=== PATIENT | female | born 1955 | race Caucasian/White ===

== ENCOUNTER 2021-01-08 08:05 | Inpatient (IN) | payer MEDICARE, MEDICAID, SELFPAY ==
[2021-01-08] VITALS (7 sets, daily range): BP systolic 118–155; BP diastolic 58–80; PULSE 66–86; RESP 16–20; TEMP 36.1–37; O2SAT 92–98; BMI 21.9
--- NOTE | ~2021-01-08 | US_ITS ---
EXAMINATION: US DOPPLER LOWER EXTREMITY ARTERIAL, LEFT CLINICAL INFORMATION: Wounds to left lower extremity, history of clot on Plavix COMPARISON: None TECHNIQUE: Duplex ultrasound of the left lower extremity arteries. FINDINGS: LEFT: Common femoral: PSV 139 centimeters per second. Biphasic waveform. Deep femoral: PSV 177 centimeters per second. Biphasic waveform. Proximal superficial femoral: PSV 68 centimeters per second. Biphasic waveform. Mid superficial femoral: PSV 58.5 centimeters per second. Biphasic waveform. Distal superficial femoral: PSV 55.8 centimeters per second. Biphasic waveform. Popliteal: PSV 36.2 centimeters per second. Biphasic waveform. Posterior tibial: PSV 11.6 centimeters per second. Biphasic waveform. US/US arterial duplex LE LT IMPRESSION: Mild stenoses throughout the course of the left lower extremity, predominantly visualized in the common femoral and proximal profunda arteries.
--- NOTE | ~2021-01-08 | MR_ITS ---
EXAMINATION: MR FOOT WITHOUT AND WITH CONTRAST, LEFT CLINICAL INFORMATION: Diabetes mellitus. Foot ulcer. Evaluate for osteomyelitis. COMPARISON: Left foot radiographs dated 01/08/2021. TECHNIQUE: Multi-sequences MR imaging of the left foot before and after the IV administration of 6 mL Gadavist contrast on a high-field strength scanner. FINDINGS: There is prominent increased T2 signal with decreased T1 signal as well as prominent postcontrast enhancement within the 2nd distal phalanx, consistent with osteomyelitis. There is adjacent subcutaneous fluid distally measuring up to 0.6 cm, which may represent a soft tissue abscess. Mild edema within the distal aspect of the 1st distal phalanx without decreased T1 signal or significant postcontrast enhancement to suggest osteomyelitis. No stress reaction or fracture. Mild edema within the intrinsic musculature of the foot, which can be seen in diabetic patients. The visualized flexor and extensor tendons are intact. MR/MR foot LT wo/w con IMPRESSION: 1. Findings consistent with acute osteomyelitis within the 2nd distal phalanx. Adjacent soft tissue fluid collection measuring 0.6 cm, likely representing a small abscess. 2. Edema within the intrinsic musculature of the foot, which can be seen in diabetic patients.
--- NOTE | ~2021-01-08 | US_ITS ---
EXAMINATION: LEFT LOWER EXTREMITY VENOUS DOPPLER ULTRASOUND CLINICAL INFORMATION: Patient with wound to left lower extremity. History of clots. On Plavix. COMPARISON: None. TECHNIQUE: Doppler spectral analysis and color flow Doppler imaging was performed of the left lower extremity. Compression maneuvers were performed. FINDINGS: The left common femoral vein, greater saphenous vein takeoff, femoral vein, and popliteal vein are normally compressible with normal phasic changes seen with Doppler imaging. The midcalf peroneal and posterior tibial veins are patent as well. No popliteal cyst is seen. US/US venous duplex LE LT IMPRESSION: No evidence of deep venous thrombosis in the left lower extremity.
--- NOTE | ~2021-01-08 | XR_ITS ---
EXAMINATION: XR FOOT, LEFT CLINICAL INFORMATION: Pain and swelling and redness second and third digits. Assess for osteomyelitis. COMPARISON: None TECHNIQUE: AP, lateral, and oblique views of the left foot. FINDINGS: There is generalized osteopenia. There is no acute or healing fracture, dislocation, destructive process. There is no perianal diameter. No gas tracking in the soft tissues. There are posterior and plantar calcaneal spurs and mild dorsal spurring from the distal talus. There is no focal significant joint narrowing or erosive change. XR/XR foot LT min 3V IMPRESSION: 1. No bony destructive process, periostitis, or gas tracking in soft tissues. 2. No visible fracture or dislocation. No erosive arthropathy. 3. Small posterior and plantar calcaneal spurs.
--- NOTE | 2021-01-08 09:51 | PHA.MEDREC ---
Pharmacy Consult ? Medication Reconciliation Pharmacy has completed the medication reconciliation.
[2021-01-08 10:30] LABS: MANUAL DIFF FLAG NO
[2021-01-08 10:32] LABS: Basophils Percent Auto 0.4 % (0-2); Eosinophils Absolute Auto 0.2 X10*3/uL (0.0-0.4); Eosinophils Percent Auto 1.8 % (0-4); Hematocrit 37.8 % (37-47); Hemoglobin 12.4 g/dl (12.0-16.0); Imm Gran Abs Auto 0.03 X10*3/uL (0.00-0.03); Imm Gran Pct Auto 0.3 % (0.0-0.4); Lymphocytes Absolute Auto 2.1 X10*3/uL (1.2-4.9); Lymphocytes Percent Auto 21.4 % (20-40); Mean Corpuscular HGB Conc 32.8 g/dl (31.0-35.0); Mean Corpuscular Hemoglobin 32.9 pg (27.0-33.0); Mean Corpuscular Volume 100.3 fL (80-98); Mean Platelet Volume 8.5 fL (9.4-12.3); Monocytes Absolute Auto 0.5 X10*3/uL (0.1-1.2); Monocytes Percent Auto 5.4 % (2-11); Neutrophils Percent Auto 70.7 % (45-73); Platelet Count 409 X10*3/uL (160-400); Red Blood Count 3.77 X10*6/uL (4.20-5.50); Red Cell Distribution Width 13.4 % (11.0-16.0)
[2021-01-08] MEDS: Morphine Sulfate 4 MG/ML CARTRIDGE IVPUSH ×3 (10:33→23:43)
[2021-01-08] MEDS: ondansetron HCL 4 MG/2 ML VIAL IVPUSH (10:33)
[2021-01-08] MEDS: 0.9 % Sodium Chloride 1,000 ML 999 ML IVCONT (10:34)
[2021-01-08] MEDS: cefTRIAXone sodium 2 GM in 0.9 % Sodium Chloride 50 ML IV (10:34)
[2021-01-08 10:39] LABS: Prothrombin Time 11.1 SEC (9.9-13.0)
--- NOTE | 2021-01-08 10:48 | ED.WOUNDLAC ---
HPI - Wound/Laceration General Chief Complaint: Extremity Injury, Lower Stated Complaint: foot pain Time Seen by Provider: 01/08/21 09:13 Source: patient Mode of arrival: ambulatory Limitations: no limitations History of Present Illness HPI narrative: 65-year-old female with a past medical history of DVT and an MD status post stent placement on chronic anticoagulation of Plavix presenting to the ED with complaints of wound/surrounding erythema/pain and swelling of her left foot at the great toe/2nd toe and 3rd toe that started approximately 1 week ago worse today. She reports that initially started with a blister on her 3rd toe and is now spreading to her 2nd and great toes. She denies any fevers, chills, dizziness, headaches, chest pain, shortness breath, nausea/vomiting/diarrhea, abdominal pain, paresthesias, history of MRSA, recent falls or injuries or any other symptoms complaints or concerns at this time. Onset (ago): week(s) (One week worse today) Extremity Location: left: foot (Great toe/2nd toe/3rd toe) Place: home Associated symptoms: pain Related Data Home Medications Medication Instructions Recorded Confirmed aspirin 81 mg tablet,delayed 81 mg PO DAILY 01/08/21 01/08/21 release (Aspirin Low Dose) atorvastatin 80 mg tablet 1 tab PO DAILY 01/08/21 01/08/21 carvedilol 3.125 mg tablet 1 tab PO BID 01/08/21 01/08/21 clopidogrel 75 mg tablet 1 tab PO DAILY 01/08/21 01/08/21 dicyclomine 20 mg tablet 20 mg PO QID PRN 01/08/21 01/08/21 gabapentin 300 mg capsule 1 cap PO TID 01/08/21 01/08/21 Allergies Allergy/AdvReac Type Severity Reaction Status Date / Time Penicillins [PCN] Allergy Severe ANAPHYLAXIS Verified 01/08/21 11:10 Review of Systems Review of Systems: Constitutional : No Fever, No Chills, Cardiovascular : No Chest Pain, No SOB Respiratory : No Dyspnea Gastrointestinal : No abdominal pain Musculoskeletal : No Joint Swelling Skin : positive skin wound with surrounding erythema, No laceration, No Foreign bodies Neuro : No Weakness, No Numbness/tingling Psych : No SI/HI/thoughts of self injury Yes all other systems are reviewed and are negative PMFSH Past Medical History Attestation statement: The following information was validated with the patient. Medical History (Updated 01/08/21 @ 12:11 by Vaughn Jeong MD) Coronary artery disease DVT (deep venous thrombosis) Heart attack Peripheral artery disease Surgical History H/O heart artery stent H/O tubal ligation Family History Family History (Updated 01/08/21 @ 12:11 by Vaughn Jeong MD) Father Diabetes Social History Social History Alcohol intake: unknown Patient Tobacco Use Status: Tobacco use Unknown Use of substances other than those prescribed or required for medical reasons: Unknown Advance Directives: Yes Advance Directives Information Provided: Yes Advance Directives on File: No Physical Exam Vital Signs: Vital Signs: Last Vital Signs Temp 98.6 F 01/08/21 08:55 Pulse 85 01/08/21 08:55 Resp 18 01/08/21 08:55 BP 118/65 01/08/21 08:55 Pulse Ox 95 01/08/21 08:55 Body Mass Index 21.9 vital signs have been reviewed as normal and appeared to be correct. Blood pressure normal. Heart rate normal. Respiration rate normal. Temperature normal. Oxygen saturation normal. Appearance: Alert. Oriented X3. No acute distress. Head: Normal external exam. Normocephalic. Atraumatic. Eyes: PERRLA. EOMI. Conjunctiva and sclera normal. Eyelids normal. ENT: Pharynx normal. Uvula midline. Moist mucous membranes. Neck: Normal inspection. Neck supple. FROM. No adenopathy. No meningeal signs. CVS: Normal heart rate and rhythm. Heart sound normal. Pulses normal throughout. No murmurs/rales/gallops. Respiratory: No respiratory distress. Painless inspiration. Breath sounds normal. No wheezes/rales/rhonchi noted. Chest nontender. No accessory muscle usage noted or decreased air movement noted. Back: Full range of motion noted. No rashes/lesion/induration/fluctuance or signs of infection noted. Skin: Patient with moderate tenderness palpation to left foot at the 3rd toe and 2nd toe and mild tenderness to palpation to the great toe she is noted to have open wounds with purulent drainage and moderate soft tissue swelling and surrounding erythema. No streaking/induration/fluctuance noted. The rest of the Skin is warm and dry. Normal skin color. Normal skin turgor. No additional rashes/lacerations noted. Extremities: Patient has tenderness palpation to left great toe/2nd toe/3rd toe otherwise does not have any tenderness up patient to any other extremities. No lower extremity edema. Extremities exhibit normal range of motion Neuro: Oriented X 3. No motor deficit. No sensory deficit. Reflexes normal. Normal steady gait. No focal neuro deficits noted. Vascular: + radial pulses/+ 2 distal pedal pulses/+2 dorsalis pedis b/l. Normal cap refill. No cyanosis noted to upper extremity nails and lower extremity toes nails. Course Course Course Narrative: 9:30am - 65-year-old female with a past medical history of DVT and an MD status post stent placement on chronic anticoagulation of Plavix presenting to the ED with complaints of wound/surrounding erythema/pain and swelling of her left foot at the great toe/2nd toe and 3rd toe that started approximately 1 week ago worse today. She reports that initially started with a blister on her 3rd toe and is now spreading to her 2nd and great toes. Plan: Labs, blood culture, lactic acid, x-ray. Provide IV fluids, Rocephin and vancomycin and plan to admit for a wound with cellulitis. Patient understands agrees with this plan. Reevaluation(s) Reevaluation #1: - labs obtained and CRP elevated at 0.59. Platelet count 409. Otherwise all other labs are within normal limits. - x-ray of left foot negative for any acute processes including osteomyelitis. - therefore at this time will admit the patient to at this time. She requested an arterial duplex ultrasound of the left lower extremity therefore ordered at this time. Time: 11:08 [facility] - Wound/Laceration Medical Records Attestation: I reviewed the patient's medical records. Lab Data Attestation: I reviewed the patient's lab results. Result diagrams: 01/08/21 10:25 01/08/21 10:24 Labs: Lab Results 01/08/21 01/08/21 01/08/21 Range/Units 10:24 10:24 10:25 WBC 10.0 (4.8-10.8) X10*3/uL RBC 3.77 L (4.20-5.50) X10*6/uL Hgb 12.4 (12.0-16.0) g/dl Hct 37.8 (37-47) % MCV 100.3 H (80-98) fL MCH 32.9 (27.0-33.0) pg MCHC 32.8 (31.0-35.0) g/dl RDW 13.4 (11.0-16.0) % Plt Count 409 H (160-400) X10*3/uL MPV 8.5 L (9.4-12.3) fL Immature Gran % (Auto) 0.3 (0.0-0.4) % Neut % (Auto) 70.7 (45-73) % Lymph % (Auto) 21.4 (20-40) % [place] % (Auto) 5.4 (2-11) % Eos % (Auto) 1.8 (0-4) % Baso % (Auto) 0.4 (0-2) % Lymph # (Auto) 2.1 (1.2-4.9) X10*3/uL [place] # (Auto) 0.5 (0.1-1.2) X10*3/uL Eos # (Auto) 0.2 (0.0-0.4) X10*3/uL Baso # (Auto) 0.0 (0.0-0.2) X10*3/uL Abs Immat Gran (auto) 0.03 (0.00-0.03) X10*3/uL Absolute Neuts (auto) 7.0 (2.0-8.3) X10*3/uL Absolute Nucleated RBC 0.000 (0.0-0.012) X10*3/uL Nucleated RBC % (auto) 0.0 (0.0-0.2) /100WBC ESR (0-20) MM/HR PT (9.9-13.0) SEC INR (0.9-1.1) Sodium 141 (135-145) mmol/L Potassium 4.4 (3.3-5.1) mmol/L Chloride 105 (96-108) mmol/L Carbon Dioxide 27 (22-29) mmol/L Anion Gap 13 (12-20) BUN 7 L (9-16) mg/dL Creatinine 0.69 (0.5-1.4) mg/dL Estim Creat Clear Calc 72.2 Estimated GFR > 60 Random Glucose 99 (60-115) mg/dL Lactic Acid 1.2 (0.5-2.0) mmol/L Calcium 9.3 (8.4-10.2) mg/dL Magnesium 1.9 (1.6-2.6) mg/dL Total Bilirubin 0.5 (0.0-1.0) mg/dL AST 22 (5-31) U/L ALT 12 (0-31) U/L Alkaline Phosphatase 93 (39-117) U/L C-Reactive Protein 0.59 H (< or = 0.50) mg/dL Total Protein 6.5 (6.5-8.0) g/dL Albumin 3.9 (3.5-5.0) g/dL 01/08/21 01/08/21 Range/Units 10:25 10:25 WBC (4.8-10.8) X10*3/uL RBC (4.20-5.50) X10*6/uL Hgb (12.0-16.0) g/dl Hct (37-47) % MCV (80-98) fL MCH (27.0-33.0) pg MCHC (31.0-35.0) g/dl RDW (11.0-16.0) % Plt Count (160-400) X10*3/uL MPV (9.4-12.3) fL Immature Gran % (Auto) (0.0-0.4) % Neut % (Auto) (45-73) % Lymph % (Auto) (20-40) % [place] % (Auto) (2-11) % Eos % (Auto) (0-4) % Baso % (Auto) (0-2) % Lymph # (Auto) (1.2-4.9) X10*3/uL [place] # (Auto) (0.1-1.2) X10*3/uL Eos # (Auto) (0.0-0.4) X10*3/uL Baso # (Auto) (0.0-0.2) X10*3/uL Abs Immat Gran (auto) (0.00-0.03) X10*3/uL Absolute Neuts (auto) (2.0-8.3) X10*3/uL Absolute Nucleated RBC (0.0-0.012) X10*3/uL Nucleated RBC % (auto) (0.0-0.2) /100WBC ESR 13 (0-20) MM/HR PT 11.1 (9.9-13.0) SEC INR 1.0 (0.9-1.1) Sodium (135-145) mmol/L Potassium (3.3-5.1) mmol/L Chloride (96-108) mmol/L Carbon Dioxide (22-29) mmol/L Anion Gap (12-20) BUN (9-16) mg/dL Creatinine (0.5-1.4) mg/dL Estim Creat Clear Calc Estimated GFR Random Glucose (60-115) mg/dL Lactic Acid (0.5-2.0) mmol/L Calcium (8.4-10.2) mg/dL Magnesium (1.6-2.6) mg/dL Total Bilirubin (0.0-1.0) mg/dL AST (5-31) U/L ALT (0-31) U/L Alkaline Phosphatase (39-117) U/L C-Reactive Protein (< or = 0.50) mg/dL Total Protein (6.5-8.0) g/dL Albumin (3.5-5.0) g/dL Imaging Data X-ray of left foot: Attestation: I personally reviewed and interpreted this imaging study as follows: Radiologist's impression: FINDINGS: There is generalized osteopenia. There is no acute or healing fracture, dislocation, destructive process. There is no perianal diameter. No gas tracking in the soft tissues. There are posterior and plantar calcaneal spurs and mild dorsal spurring from the distal talus. There is no focal significant joint narrowing or erosive change.? XR/XR foot LT min 3V IMPRESSION: ? 1. No bony destructive process, periostitis, or gas tracking in soft tissues. 2. No visible fracture or dislocation. No erosive arthropathy. 3. Small posterior and plantar calcaneal spurs. Venous duplex ultrasound of left lower extremity: Attestation: I personally reviewed and interpreted this imaging study as follows: Radiologist's impression: FINDINGS: The left common femoral vein, greater saphenous vein takeoff, femoral vein, and popliteal vein are normally compressible with normal phasic changes seen with Doppler imaging. The midcalf peroneal and posterior tibial veins are patent as well. No popliteal cyst is seen. US/US venous duplex LE LT IMPRESSION: No evidence of deep venous thrombosis in the left lower extremity. Critical Care Time Critical Care Time Critical Care Time: Yes Total Critical Care Time: 60 Attestation: I personally attest to this time spent taking care of the patient Discharge Plan Discharge Clinical Impression: Open toe wound, Cellulitis Patient Disposition: Admitted As Inpatient
[2021-01-08 10:51] LABS: Lactic Acid 1.2 mmol/L (0.5-2.0)
[2021-01-08 10:56] LABS: Alanine Aminotransferase 12 U/L (0-31); Albumin Level 3.9 g/dL (3.5-5.0); Alkaline Phosphatase 93 U/L (39-117); Anion Gap 13 (12-20); Aspartate Amino Transferase 22 U/L (5-31); Bilirubin Total 0.5 mg/dL (0.0-1.0); Blood Urea Nitrogen 7 mg/dL (9-16); C Reactive Protein 0.59 mg/dL (< or = 0.50); Calcium 9.3 mg/dL (8.4-10.2); Carbon Dioxide 27 mmol/L (22-29); Chloride 105 mmol/L (96-108); Creatinine Clr Calc Pharmacy 72.2; Estimated Glomerular Filt Rate > 60; Glucose Random 99 mg/dL (60-115); Magnesium 1.9 mg/dL (1.6-2.6); Potassium 4.4 mmol/L (3.3-5.1); Sodium 141 mmol/L (135-145); Total Protein 6.5 g/dL (6.5-8.0)
[2021-01-08] MEDS: vancomycin HCL 1,000 MG in 0.9 % Sodium Chloride 250 ML 270 MG IV (11:09)
[2021-01-08 11:19] LABS: Erythrocyte Sedimentation Rate 13 MM/HR (0-20)
--- NOTE | 2021-01-08 11:52 | PM.IMHP ---
History of Present Illness Date of Service: 01/08/21 Chief Complaint: foot ulcer/infection Female with past medical history of coronary artery disease status post HI with stent, history of peripheral arterial disease status post angioplasty with a stent in the left lower extremity, history of DVT, who presents to the hospital with complaints of ulcers and infection in her 2nd and 3rd toe of her left foot. Patient reports that her symptoms started about a week and a half ago, pain is 8/10, persistent, sharp shooting throbbing pain, no fever or chills, patient reports that it started with a blister initially but now has pus and pain. There is also redness, no swelling. Patient reports that she had angioplasty of her left lower extremity due to clots about 6 years ago and there is a stent in her left leg. She denies any chest pain, no shortness of breath, no cough, no abdominal pain nausea or vomiting, no diarrhea constipation, no urinary symptoms and no lower extremity edema, no numbness tingling, no headache or change in vision. Vitals reviewed stable Lab significant for WBC count of 10.0, otherwise no abnormality. Foot x-ray shows no bony destructive process, per cystitis or gastric inguinal soft tissue, no visible fracture dislocation Review of Systems Review of Systems: Yes all other systems are reviewed and are negative [facility] Medical History (Updated 01/08/21 @ 12:11 by Vaughn Jeong MD) Coronary artery disease DVT (deep venous thrombosis) Heart attack Peripheral artery disease Family History (Updated 01/08/21 @ 12:11 by Vaughn Jeong MD) Father Diabetes Surgical History H/O heart artery stent H/O tubal ligation Social History Alcohol intake: unknown Patient Tobacco Use Status: Tobacco use Unknown Use of substances other than those prescribed or required for medical reasons: Unknown Advance Directives: Yes Advance Directives Information Provided: Yes Advance Directives on File: No Meds Allergies Allergy/AdvReac Type Severity Reaction Status Date / Time Penicillins [PCN] Allergy Severe ANAPHYLAXIS Verified 01/08/21 11:10 Active Medications: Current Medications Generic Name Dose Route Start Last Admin Trade Name Freq PRN Reason Stop Dose Admin Pharmacy Consult 1 each 01/08/21 09:27 Consult Rx Perform Med Rec MISCELLANE ONCE PRN Consult order Home Medications Medication Instructions Recorded Confirmed Last Taken Type aspirin 81 mg tablet,delayed 81 mg PO DAILY 01/08/21 01/08/21 01/08/21 History release (Aspirin Low Dose) atorvastatin 80 mg tablet 1 tab PO DAILY 01/08/21 01/08/21 01/08/21 History carvedilol 3.125 mg tablet 1 tab PO BID 01/08/21 01/08/21 01/08/21 History clopidogrel 75 mg tablet 1 tab PO DAILY 01/08/21 01/08/21 01/08/21 History dicyclomine 20 mg tablet 20 mg PO QID PRN 01/08/21 01/08/21 Unknown History gabapentin 300 mg capsule 1 cap PO TID 01/08/21 01/08/21 01/08/21 History Physical Exam Vital Signs and Narrative: Vital Signs: Last Vital Signs Temp 98.6 F 01/08/21 08:55 Pulse 85 01/08/21 08:55 Resp 18 01/08/21 08:55 BP 118/65 01/08/21 08:55 Pulse Ox 95 01/08/21 08:55 Body Mass Index 21.9 Const: General: cooperative and no acute distress Orientation/consciousness: patient oriented x3 Eyes: General: appearance normal, both eyes and all related structures Pupils: Equal, round and reactive pupils present Resp: Effort & Inspection: normal respiratory effort and able to speak in complete sentences Auscultation: clear to auscultation bilaterally Cardio: Rate: regular rate Rhythm: regular rhythm GI: Palpation (GI): Soft to palpation Auscultation: normal bowel sounds Skin: Other: ulcers in left 2nd and 3rd toe, pus, erythema, tenderness, no warmth General skin exam: no rashes or lesions noted Neuro: General: patient oriented x3 Cranial nerves: Yes Equal, round and reactive pupils present Cognition (Neuro): normal cognition Extrem: Other: see skin General: Yes no pedal edema Results Labs CBC and Chem 7: 01/08/21 10:25 01/08/21 10:24 Labs: Laboratory Results - last 24 hr 01/08/21 01/08/21 01/08/21 10:24 10:24 10:25 MCV 100.3 H MCH 32.9 MCHC 32.8 RDW 13.4 Plt Count 409 H MPV 8.5 L Immature Gran % (Auto) 0.3 Neut % (Auto) 70.7 Lymph % (Auto) 21.4 [place] % (Auto) 5.4 Eos % (Auto) 1.8 Baso % (Auto) 0.4 Lymph # (Auto) 2.1 [place] # (Auto) 0.5 Eos # (Auto) 0.2 Baso # (Auto) 0.0 Abs Immat Gran (auto) 0.03 Absolute Neuts (auto) 7.0 Absolute Nucleated RBC 0.000 Nucleated RBC % (auto) 0.0 ESR PT INR Anion Gap 13 Estim Creat Clear Calc 72.2 Estimated GFR > 60 Random Glucose 99 Lactic Acid 1.2 Calcium 9.3 Magnesium 1.9 Total Bilirubin 0.5 AST 22 ALT 12 Alkaline Phosphatase 93 C-Reactive Protein 0.59 H Total Protein 6.5 Albumin 3.9 01/08/21 01/08/21 10:25 10:25 MCV MCH MCHC RDW Plt Count MPV Immature Gran % (Auto) Neut % (Auto) Lymph % (Auto) [place] % (Auto) Eos % (Auto) Baso % (Auto) Lymph # (Auto) [place] # (Auto) Eos # (Auto) Baso # (Auto) Abs Immat Gran (auto) Absolute Neuts (auto) Absolute Nucleated RBC Nucleated RBC % (auto) ESR 13 PT 11.1 INR 1.0 Anion Gap Estim Creat Clear Calc Estimated GFR Random Glucose Lactic Acid Calcium Magnesium Total Bilirubin AST ALT Alkaline Phosphatase C-Reactive Protein Total Protein Albumin Imaging Radiologist's Impressions: Impressions Foot X-Ray 01/08/21 09:27 IMPRESSION: 1. No bony destructive process, periostitis, or gas tracking in soft tissues. 2. No visible fracture or dislocation. No erosive arthropathy. 3. Small posterior and plantar calcaneal spurs. Assessment and Plan (1) Cellulitis: Status: Acute (2) Foot ulcer, left: Status: Acute 65-year-old female with past medical history of HI as well as peripheral arterial disease presents to the hospital with ulcers on her 2nd and 3rd toe of the left foot # foot ulcer/cellulitis - possibly secondary to arterial disease - there is Purulent discharge from the 2nd and 3rd left toes - there is erythema, tenderness, no warmth and minimal swelling - has history of peripheral vascular disease of the left lower extremity status post stents per patient - x-ray of the foot negative - will treat with IV antibiotic - will obtain ESR and CRP - will obtain lower extremity arterial duplex study - pain control - wound care consult # history of coronary artery disease status post HI with stent - patient on dual antiplatelet with Plavix and aspirin although she reports that a stent was placed 6 years ago - unclear if the Plavix as for lower extremity peripheral artery disease - will continue at this time DVT prophylaxis: Lovenox Quality Stroke Does the patient have a stroke diagnosis?: No VTE Prior VTE?: No VTE Risk Level:: Medical - moderate - high VTE Device Contraindication: Treatment Not Indicated VTE Drug Contraindication: N/A - Med Ordered
[2021-01-08] MEDS: Gabapentin 300 MG CAPSULE PO ×2 (15:55→21:27)
[2021-01-08] MEDS: Enoxaparin Sodium 40 MG/0.4 ML SYRINGE SUBCUT (15:55)
[2021-01-08 16:18] LABS: Glucose, Whole Blood 115 mg/dL (60-115)
[2021-01-08] MEDS: 0.9 % Sodium Chloride Flush 3 ML SYRINGE IVFLUSH (16:29)
[2021-01-08] MEDS: carvediloL 3.125 MG TABLET PO (21:26)
[2021-01-08] MEDS: vancomycin HCL 750 MG in 0.9 % Sodium Chloride 250 ML 265 MG IV (22:21)
[2021-01-09] MEDS: 0.9 % Sodium Chloride Flush 3 ML SYRINGE IVFLUSH ×4 (01:21→21:07)
[2021-01-09 04:00] VITALS: BP 151/62; PULSE 86; RESP 16; TEMP 36.4; O2SAT 96
[2021-01-09 05:07] LABS: Glucose Urine UA NEG (NEG); Leukocyte Esterase Urine NEG (NEG); Nitrite Urine NEG (NEG); Specific Gravity - Urine >= 1.030 (1.005-1.025); UACC Culture Trigger NO; Urine Blood TRACE (NEG); Urine Ketones NEG (NEG); Urine Protein NEG (NEG-TRACE)
[2021-01-09 05:08] LABS: Appearance Urine CLEAR; Color Urine YELLOW
[2021-01-09 05:18] LABS: Mucus Urine TRACE /LPF; Squamous Epithelial Cell Urine 1+ /LPF; WBC Urine 0-2 /HPF (0-4)
[2021-01-09 06:18] LABS: MANUAL DIFF FLAG NO
[2021-01-09 06:56] LABS: Basophils Percent Auto 0.4 % (0-2); Eosinophils Absolute Auto 0.2 X10*3/uL (0.0-0.4); Eosinophils Percent Auto 3.1 % (0-4); Hemoglobin 10.6 g/dl (12.0-16.0); Imm Gran Abs Auto 0.02 X10*3/uL (0.00-0.03); Imm Gran Pct Auto 0.3 % (0.0-0.4); Lymphocytes Absolute Auto 2.4 X10*3/uL (1.2-4.9); Mean Corpuscular HGB Conc 32.1 g/dl (31.0-35.0); Mean Corpuscular Hemoglobin 32.9 pg (27.0-33.0); Mean Corpuscular Volume 102.5 fL (80-98); Mean Platelet Volume 8.8 fL (9.4-12.3); Monocytes Absolute Auto 0.6 X10*3/uL (0.1-1.2); Monocytes Percent Auto 8.5 % (2-11); Neutrophils Absolute Auto 3.9 X10*3/uL (2.0-8.3); Neutrophils Percent Auto 54.7 % (45-73); Platelet Count 350 X10*3/uL (160-400); Red Blood Count 3.22 X10*6/uL (4.20-5.50); Red Cell Distribution Width 13.6 % (11.0-16.0); White Blood Count 7.2 X10*3/uL (4.8-10.8)
[2021-01-09 07:29] LABS: Anion Gap 9 (12-20); Blood Urea Nitrogen 8 mg/dL (9-16); Calcium 8.8 mg/dL (8.4-10.2); Carbon Dioxide 29 mmol/L (22-29); Chloride 107 mmol/L (96-108); Creatinine Clr Calc Pharmacy 70.1; Estimated Glomerular Filt Rate > 60; Glucose Random 100 mg/dL (60-115); Potassium 4.7 mmol/L (3.3-5.1); Sodium 140 mmol/L (135-145)
[2021-01-09 07:44] LABS: Glucose, Whole Blood 87 mg/dL (60-115)
[2021-01-09 08:00] VITALS: BP 141/67; PULSE 67; RESP 18; TEMP 36.6; O2SAT 97
[2021-01-09] MEDS: Morphine Sulfate 4 MG/ML CARTRIDGE IVPUSH ×3 (09:04→23:41)
[2021-01-09] MEDS: Aspirin Enteric Coated 81 MG TABLET.DR PO (09:05)
[2021-01-09] MEDS: Atorvastatin Calcium 80 MG TABLET PO (09:05)
[2021-01-09] MEDS: Clopidogrel Bisulfate 75 MG TABLET PO (09:05)
[2021-01-09] MEDS: carvediloL 3.125 MG TABLET PO ×2 (09:05→21:04)
[2021-01-09] MEDS: Gabapentin 300 MG CAPSULE PO ×3 (09:05→21:04)
[2021-01-09 11:31] LABS: Glucose, Whole Blood 95 mg/dL (60-115)
--- NOTE | 2021-01-09 11:42 | MHC.CM.PN ---
Addendum entered by Trish Snider 01/09/21 11:43: IMM 01/09 IN CHART Original Note: PATIENT LIVES WITH HER HCP/SON, MARTA. COPY ON FILE AND VERIFIED. SHE IS INDEPENDENT WITH HER ADLS. NO DME OR VNA SERVICES. SHE DOES HOPE TO RETURN HOME WITH NO SERVICES.
[2021-01-09] MEDS: vancomycin HCL 750 MG in 0.9 % Sodium Chloride 250 ML 265 MG IV (11:46)
[2021-01-09 12:00] VITALS: BP 167/77; PULSE 75; RESP 16; TEMP 36.3; O2SAT 95
[2021-01-09] MEDS: Enoxaparin Sodium 40 MG/0.4 ML SYRINGE SUBCUT (15:38)
[2021-01-09 15:45] VITALS: BP 138/63; PULSE 74; RESP 16; TEMP 36.7; O2SAT 92
--- NOTE | 2021-01-09 16:52 | HO.PM.IMPN ---
Subjective Subjective Date of Service: 01/09/21 Interval History: persistent left foot swelling and discomfort, denies fever chills no other acute issues overnight. Review of Systems General no headache, no dizziness,no fever chills. CVS no chest pain, no palpitation. Respiratory no cough, no sob. Gastrointestinal no nausea, no vomiting, no abdominal pain. Physical Exam Vital Signs: Vital Signs: Last Vital Signs Temp 98.0 F 01/09/21 15:45 Pulse 74 01/09/21 15:45 Resp 16 01/09/21 15:45 BP 138/63 01/09/21 15:45 Pulse Ox 92 01/09/21 15:45 Body Mass Index 21.9 General no acute distress. Neck supple, no JVD. CVS regular rate rhythm, Respiratory lungs clear to auscultation, no respiratory distress Gastrointestinal abdomen soft, nontender, bowel sounds audible Extremities right lower extremity no edema, left foot positive swelling dorsum of foot with mild erythema, superficial ulcers between 2nd and 3rd toe minimal purulent drainage, unable to palpate DP pulse Neuro nonfocal Skin no rash Objective Data Current Medications Generic Name Dose Route Start Last Admin Trade Name Freq PRN Reason Stop Dose Admin Acetaminophen 650 mg 01/08/21 14:43 Acetaminophen 325 Mg Tablet PO Q6H PRN Pain, Mild (Pain Scale 1-3) Aspirin 81 mg 01/08/21 14:43 01/09/21 09:05 Aspirin Enteric Coated 81 Mg Tablet.Dr PO 81 mg DAILY JOSE Administration Atorvastatin Calcium 80 mg 01/09/21 09:00 01/09/21 09:05 Atorvastatin Calcium 80 Mg Tablet PO 80 mg DAILY JOSE Administration Carvedilol 3.125 mg 01/08/21 14:43 01/09/21 09:05 Carvedilol 3.125 Mg Tablet PO 3.125 mg BID JOSE Administration Protocol Clopidogrel Bisulfate 75 mg 01/08/21 14:43 01/09/21 09:05 Clopidogrel Bisulfate 75 Mg Tablet PO 75 mg DAILY JOSE Administration Dicyclomine HCl 20 mg 01/08/21 14:46 Dicyclomine Hcl 10 Mg Capsule PO QID PRN Abdominal Pain Docusate Sodium 100 mg 01/08/21 14:43 Docusate Sodium 100 Mg Capsule PO DAILY PRN Constipation Enoxaparin Sodium 40 mg 01/08/21 15:00 01/09/21 15:38 Enoxaparin Sodium 40 Mg/0.4 Ml Syringe SUBCUT 40 mg Q24H JOSE Administration Gabapentin 300 mg 01/08/21 15:00 01/09/21 15:38 Gabapentin 300 Mg Capsule PO 300 mg TID JOSE Administration Vancomycin HCl 750 mg/ Sodium 265 mls @ 265 mls/hr 01/08/21 23:00 01/09/21 12:56 Chloride IV Infused Q12H JOSE Infusion Morphine Sulfate 4 mg 01/08/21 14:43 01/09/21 09:04 Morphine Sulfate 4 Mg/Ml Cartridge IVPUSH 4 mg Q4H PRN Administration Pain, Severe (Pain Scale 7-10) Protocol Ondansetron HCl 4 mg 01/08/21 14:43 Ondansetron Hcl 4 Mg/2 Ml Vial IVPUSH Q8H PRN Nausea and Vomiting Pharmacy Consult 1 each 01/08/21 09:27 Consult Rx Perform Med Rec MISCELLANE ONCE PRN Consult order Pharmacy Consult 1 each 01/08/21 14:43 Consult Rx Vancomycin Dosing MISCELLANE DAILY PRN Consult order Sodium Chloride 3 ml 01/08/21 16:00 01/09/21 15:38 0.9 % Sodium Chloride Flush 3 Ml Syringe IVFLUSH 3 ml QSHIFT JOSE Administration Labs CBC & Chem 7: 01/09/21 05:53 01/09/21 05:53 Labs: Laboratory Results - last 24 hr 01/09/21 01/09/21 01/09/21 04:30 05:53 05:53 MCV 102.5 H MCH 32.9 MCHC 32.1 RDW 13.6 Plt Count 350 MPV 8.8 L Immature Gran % (Auto) 0.3 Neut % (Auto) 54.7 Lymph % (Auto) 33.0 [place] % (Auto) 8.5 Eos % (Auto) 3.1 Baso % (Auto) 0.4 Lymph # (Auto) 2.4 [place] # (Auto) 0.6 Eos # (Auto) 0.2 Baso # (Auto) 0.0 Abs Immat Gran (auto) 0.02 Absolute Neuts (auto) 3.9 Absolute Nucleated RBC 0.000 Nucleated RBC % (auto) 0.0 Anion Gap 9 L Estim Creat Clear Calc 70.1 Estimated GFR > 60 POC Glucose Random Glucose 100 Calcium 8.8 Urine Color YELLOW Urine Appearance CLEAR Urine pH 6.0 Ur Specific [place] >= 1.030 H Urine Protein NEG Urine Glucose (UA) NEG Urine Ketones NEG Urine Blood TRACE Urine Nitrite NEG Ur Leukocyte Esterase NEG Urine RBC 1-4 Urine WBC 0-2 Ur Squamous Epith Cells 1+ Urine Bacteria NONE Urine Mucus TRACE 01/09/21 01/09/21 07:36 11:16 MCV MCH MCHC RDW Plt Count MPV Immature Gran % (Auto) Neut % (Auto) Lymph % (Auto) [place] % (Auto) Eos % (Auto) Baso % (Auto) Lymph # (Auto) [place] # (Auto) Eos # (Auto) Baso # (Auto) Abs Immat Gran (auto) Absolute Neuts (auto) Absolute Nucleated RBC Nucleated RBC % (auto) Anion Gap Estim Creat Clear Calc Estimated GFR POC Glucose 87 95 Random Glucose Calcium Urine Color Urine Appearance Urine pH Ur Specific [place] Urine Protein Urine Glucose (UA) Urine Ketones Urine Blood Urine Nitrite Ur Leukocyte Esterase Urine RBC Urine WBC Ur Squamous Epith Cells Urine Bacteria Urine Mucus Microbiology Microbiology Results: Microbiology 01/08/21 10:32 Blood Culture - Preliminary Blood - Venous No growth after 24 hours. 01/08/21 10:24 Blood Culture - Preliminary Blood - Venous No growth after 24 hours. Assessment and Plan (1) Foot ulcer, left: Status: Acute (2) Open toe wound: Status: Acute (3) Cellulitis: Status: Acute (4) Chronic anticoagulation: Status: Acute Assessment and Plan: 65-year-old female with past medical history of PA as well as peripheral arterial disease presents to the hospital with ulcers on her 2nd and 3rd toe of the left foot # left foot ulcer/cellulitis Persistent left foot swelling and redness with superficial ulcers 2nd and 3rd left toes possibly secondary to arterial disease, has history of peripheral vascular disease of the left lower extremity status post stents ,x-ray of the foot negative ESR 13 and CRP 0.59, lower extremity Doppler study showed no evidence of DVT, arterial duplex study showed mild stenosis throughout the course of left lower extremity predominantly common femoral and proximal profundus arteries. Continue IV Vanco day 2, Continue wound care , obtain ID and vascular surgery consult # history of coronary artery disease status post PA with stent - patient on dual antiplatelet with Plavix and aspirin although she reports that a stent was placed 6 years ago,unclear if the Plavix is for lower extremity peripheral artery disease Continue statins, and Coreg No chest pain DVT prophylaxis:? Lovenox Quality Stroke Does the patient have a stroke diagnosis?: No VTE Prior VTE?: No VTE Risk Level:: Medical - moderate - high VTE Device Contraindication: Treatment Not Indicated VTE Drug Contraindication: N/A - Med Ordered
[2021-01-09 19:38] VITALS: BP 178/77; PULSE 78; RESP 14; TEMP 36.8; O2SAT 96
[2021-01-09 21:04] VITALS: BP 161/70; PULSE 81
[2021-01-09 22:58] LABS: Vancomycin Trough 8.8 mcg/mL (10.0-20.0)
[2021-01-09] MEDS: vancomycin HCL 1,000 MG in 0.9 % Sodium Chloride 250 ML 270 MG IV (23:40)
--- NOTE | 2021-01-09 23:46 | P.EN_ITS ---
Event Note Date of Service: 01/09/21 Event Note: She has PAD and ulcers Vancomycin for now,possible [facility] She is seeing Vascular
--- NOTE | 2021-01-09 23:46 | PM.EVENT ---
Event Note Date of Service: 01/09/21 Event Note: She has PAD and ulcers Vancomycin for now,possible [facility] She is seeing Vascular
[2021-01-10] VITALS (8 sets, daily range): BP systolic 136–185; BP diastolic 73–93; PULSE 70–95; RESP 16–18; TEMP 36.5–37.2; O2SAT 95–97
[2021-01-10] MEDS: Morphine Sulfate 4 MG/ML CARTRIDGE IVPUSH ×4 (05:20→21:34)
[2021-01-10] MEDS: 0.9 % Sodium Chloride Flush 3 ML SYRINGE IVFLUSH ×2 (09:33→15:32)
[2021-01-10] MEDS: carvediloL 3.125 MG TABLET PO ×2 (09:38→21:34)
[2021-01-10] MEDS: Clopidogrel Bisulfate 75 MG TABLET PO (09:38)
[2021-01-10] MEDS: Aspirin Enteric Coated 81 MG TABLET.DR PO (09:38)
[2021-01-10] MEDS: Atorvastatin Calcium 80 MG TABLET PO (09:38)
[2021-01-10] MEDS: Gabapentin 300 MG CAPSULE PO ×3 (09:38→21:35)
--- NOTE | 2021-01-10 11:35 | HO.PM.IMPN ---
Subjective Subjective Date of Service: 01/10/21 Interval History: Feels swelling and redness left foot is improving, no pain, no fevers, no chills no nausea no vomiting no other acute issues overnight Review of Systems General no headache, no dizziness,no fever chills.? CVS no chest pain, no palpitation.? Respiratory no cough, no sob.? Gastrointestinal no nausea, no vomiting, no abdominal pain. Physical Exam Vital Signs: Vital Signs: Last Vital Signs Temp 97.8 F 01/10/21 08:00 Pulse 70 01/10/21 08:00 Resp 18 01/10/21 08:00 BP 151/74 H 01/10/21 08:00 Pulse Ox 97 01/10/21 08:00 Body Mass Index 21.9 General no acute distress.? Neck supple, no JVD. CVS? regular rate rhythm, Respiratory lungs clear to auscultation, no respiratory distress Gastrointestinal abdomen soft, nontender, bowel sounds audible Extremities right lower extremity no edema, left foot swelling dorsum of foot with mild erythema improving, superficial ulcers between 2nd and 3rd toe minimal purulent drainage, unable to palpate DP pulse Neuro nonfocal Skin no rash Objective Data Current Medications Generic Name Dose Route Start Last Admin Trade Name Freq PRN Reason Stop Dose Admin Acetaminophen 650 mg 01/08/21 14:43 Acetaminophen 325 Mg Tablet PO Q6H PRN Pain, Mild (Pain Scale 1-3) Aspirin 81 mg 01/08/21 14:43 01/10/21 09:38 Aspirin Enteric Coated 81 Mg Tablet.Dr PO 81 mg DAILY JOSE Administration Atorvastatin Calcium 80 mg 01/09/21 09:00 01/10/21 09:38 Atorvastatin Calcium 80 Mg Tablet PO 80 mg DAILY JOSE Administration Carvedilol 3.125 mg 01/08/21 14:43 01/10/21 09:38 Carvedilol 3.125 Mg Tablet PO 3.125 mg BID JOSE Administration Protocol Clopidogrel Bisulfate 75 mg 01/08/21 14:43 01/10/21 09:38 Clopidogrel Bisulfate 75 Mg Tablet PO 75 mg DAILY JOSE Administration Dicyclomine HCl 20 mg 01/08/21 14:46 Dicyclomine Hcl 10 Mg Capsule PO QID PRN Abdominal Pain Docusate Sodium 100 mg 01/08/21 14:43 Docusate Sodium 100 Mg Capsule PO DAILY PRN Constipation Enoxaparin Sodium 40 mg 01/08/21 15:00 01/09/21 15:38 Enoxaparin Sodium 40 Mg/0.4 Ml Syringe SUBCUT 40 mg Q24H JOSE Administration Gabapentin 300 mg 01/08/21 15:00 01/10/21 09:38 Gabapentin 300 Mg Capsule PO 300 mg TID JOSE Administration Vancomycin HCl 1,000 mg/ 270 mls @ 270 mls/hr 01/09/21 23:00 01/10/21 01:29 Sodium Chloride IV Infused Q12H JOSE Infusion Morphine Sulfate 4 mg 01/08/21 14:43 01/10/21 09:36 Morphine Sulfate 4 Mg/Ml Cartridge IVPUSH 4 mg Q4H PRN Administration Pain, Severe (Pain Scale 7-10) Protocol Ondansetron HCl 4 mg 01/08/21 14:43 Ondansetron Hcl 4 Mg/2 Ml Vial IVPUSH Q8H PRN Nausea and Vomiting Pharmacy Consult 1 each 01/08/21 09:27 Consult Rx Perform Med Rec MISCELLANE ONCE PRN Consult order Pharmacy Consult 1 each 01/08/21 14:43 Consult Rx Vancomycin Dosing MISCELLANE DAILY PRN Consult order Sodium Chloride 3 ml 01/08/21 16:00 01/10/21 09:33 0.9 % Sodium Chloride Flush 3 Ml Syringe IVFLUSH 3 ml QSHIFT JOSE Administration Labs CBC & Chem 7: 01/09/21 05:53 01/09/21 05:53 Labs: Laboratory Results - last 24 hr 01/09/21 22:06 Vancomycin Trough 8.8 L Microbiology Microbiology Results: Microbiology 01/08/21 10:32 Blood Culture - Preliminary Blood - Venous No growth after 24 hours. 01/08/21 10:24 Blood Culture - Preliminary Blood - Venous No growth after 24 hours. Assessment and Plan (1) Foot ulcer, left: Status: Acute (2) Cellulitis: Status: Acute (3) Chronic anticoagulation: Status: Acute (4) DVT (deep venous thrombosis): Status: Acute Assessment and Plan: 65-year-old female with past medical history of MO as well as peripheral arterial disease presents to the hospital with ulcers on her 2nd and 3rd toe of the left foot # left foot ulcer/cellulitis ?? left foot swelling and redness improving, superficial ulcers 2nd and 3rd left toes minimal drainage. ?? possibly secondary to arterial disease, has history of peripheral vascular disease of the left lower extremity status post stents ,x-ray of the foot negative ?? ESR 13 and CRP 0.59, lower extremity Doppler study showed no evidence of DVT, arterial duplex study showed mild stenosis throughout the course of left lower extremity predominantly ?? common femoral and proximal profundus arteries. ?? Continue IV Vanco day 3, Continue wound care Id agree to continue vancomycin, awaiting vascular surgery input. # history of coronary artery disease status post MO with stent - patient on dual antiplatelet with Plavix and aspirin although she reports that a stent was placed 6 years ago,unclear if the Plavix is for lower extremity peripheral artery disease ? Continue statins, and Coreg ? No chest pain # hypertension elevated blood pressure patient is on Coreg 3.125 mg twice daily for years, will increase dose to 6.25 if blood pressure remains elevated DVT prophylaxis:? Lovenox Quality Stroke Does the patient have a stroke diagnosis?: No VTE Prior VTE?: No VTE Risk Level:: Medical - moderate - high VTE Device Contraindication: Treatment Not Indicated VTE Drug Contraindication: N/A - Med Ordered
[2021-01-10] MEDS: vancomycin HCL 1,000 MG in 0.9 % Sodium Chloride 250 ML 270 MG IV ×2 (12:20→22:47)
[2021-01-10] MEDS: Enoxaparin Sodium 40 MG/0.4 ML SYRINGE SUBCUT (15:32)
[2021-01-11] VITALS (8 sets, daily range): BP systolic 119–160; BP diastolic 62–82; PULSE 61–89; RESP 16–18; TEMP 36.1–36.6; O2SAT 95–99
[2021-01-11 07:24] LABS: Anion Gap 15 (12-20); Blood Urea Nitrogen 10 mg/dL (9-16); Calcium 9.5 mg/dL (8.4-10.2); Carbon Dioxide 28 mmol/L (22-29); Chloride 103 mmol/L (96-108); Creatinine Clr Calc Pharmacy 72.2; Estimated Glomerular Filt Rate > 60; Glucose Random 91 mg/dL (60-115); Potassium 4.6 mmol/L (3.3-5.1); Sodium 141 mmol/L (135-145)
[2021-01-11] MEDS: carvediloL 3.125 MG TABLET PO ×2 (08:32→21:59)
[2021-01-11] MEDS: Atorvastatin Calcium 80 MG TABLET PO (08:32)
[2021-01-11] MEDS: Aspirin Enteric Coated 81 MG TABLET.DR PO (08:32)
[2021-01-11] MEDS: Gabapentin 300 MG CAPSULE PO ×3 (08:32→21:59)
[2021-01-11] MEDS: 0.9 % Sodium Chloride Flush 3 ML SYRINGE IVFLUSH ×2 (08:32→15:43)
[2021-01-11] MEDS: Morphine Sulfate 4 MG/ML CARTRIDGE IVPUSH ×2 (08:32→15:39)
[2021-01-11] MEDS: Clopidogrel Bisulfate 75 MG TABLET PO (08:32)
[2021-01-11 09:50] LABS: Hematocrit 36.5 % (37-47); Hemoglobin 12.1 g/dl (12.0-16.0); Mean Corpuscular HGB Conc 33.2 g/dl (31.0-35.0); Mean Corpuscular Hemoglobin 32.7 pg (27.0-33.0); Mean Corpuscular Volume 98.6 fL (80-98); Mean Platelet Volume 8.6 fL (9.4-12.3); Platelet Count 377 X10*3/uL (160-400); Red Cell Distribution Width 13.4 % (11.0-16.0)
[2021-01-11 10:24] LABS: Anion Gap 13 (12-20); Blood Urea Nitrogen 10 mg/dL (9-16); C Reactive Protein 0.95 mg/dL (< or = 0.50); Calcium 9.5 mg/dL (8.4-10.2); Carbon Dioxide 30 mmol/L (22-29); Chloride 100 mmol/L (96-108); Creatinine Clr Calc Pharmacy 69.1; Estimated Glomerular Filt Rate > 60; Glucose Random 128 mg/dL (60-115); Potassium 4.2 mmol/L (3.3-5.1); Sodium 139 mmol/L (135-145)
[2021-01-11 10:29] LABS: Vancomycin Trough 11.9 mcg/mL (10.0-20.0)
[2021-01-11 10:51] LABS: Erythrocyte Sedimentation Rate 23 MM/HR (0-20)
[2021-01-11] MEDS: vancomycin HCL 1,000 MG in 0.9 % Sodium Chloride 250 ML 270 MG IV ×2 (11:39→22:02)
--- NOTE | 2021-01-11 12:39 | PM.CNGS ---
History of Present Illness Consult details Consult date: 01/11/21 Reason for consult: other (PAD) Narrative: Pleasant 65-year-old female presents for vascular evaluation regarding nonhealing left foot ulceration. According to the patient this began 2-3 weeks prior. She has had difficulty ambulating for some time. Of note she has had endovascular intervention in 2018 at [facility] by Dr. Romeo. At that time she reports there was some sort of thrombolysis that occurred overnight and the following day a she appeared to be doing significantly better. She now presents for vascular evaluation. Of note she has a nonhealing ulcer between the webspace of her 2nd and 3rd toes on the left foot. Review of Systems Review of Systems: Yes all other systems are reviewed and are negative Constitutional: Constitutional: Reports no additional constitutional complaints ENT: Reports Normal hearing present Cardiovascular: Cardiovascular: Denies chest pain, Denies chest pain at rest, Denies chest pain with activity and Denies pedal edema Respiratory: Respiratory: Denies cough Gastrointestinal: Gastrointestinal: Denies abdominal pain Musculoskeletal: Musculoskeletal: Denies abnormal gait, Denies muscle cramps and Reports radiating pain into limb (Left) Integumentary/Breasts: Skin/Breast: Reports skin ulcer and Reports wounds Neurologic: Reports Normal hearing present and Denies abnormal gait Psychiatric: Psychiatric: Reports no additional psychiatric complaints PMF Past Medical History Medical History (Updated 01/11/21 @ 12:42 by Alireza Ellis MD) Coronary artery disease DVT (deep venous thrombosis) Heart attack Peripheral artery disease Family History Family History (Updated 01/08/21 @ 12:11 by Vaughn Jeong MD) Father Diabetes Surgical History Surgical History H/O heart artery stent H/O tubal ligation Social History Social History Household Members: Children Housing: House Alcohol intake: unknown Patient Tobacco Use Status: Tobacco use Unknown Tobacco use type: Cigarette Use of substances other than those prescribed or required for medical reasons: No Currently Displaying Signs/Symptoms of Drug Intoxication Withdrawal: No Have you been hit, kicked, punched, or otherwise hurt by someone within the past year? If so, by whom?: No Do you feel safe in your current relationship?: No Current Relationship Is there a partner from a previous relationship who is making you feel unsafe now?: No Are you made to feel afraid or neglected: No Advance Directives: Yes Advance Directives Information Provided: Yes Advance Directives on File: No Advance Directives Date on File: 01/08/21 Do you have thoughts of harming others: None Do you have a plan to hurt others: No Plan Recently lost weight without trying: No Nutrition Risks: No Nutritional Risk service: No Current occupational status: employed Meds Allergies Allergy/AdvReac Type Severity Reaction Status Date / Time Penicillins [PCN] Allergy Severe ANAPHYLAXIS Verified 01/08/21 11:10 Active Medications: Current Medications Generic Name Dose Route Start Last Admin Trade Name Freq PRN Reason Stop Dose Admin Acetaminophen 650 mg 01/08/21 14:43 Acetaminophen 325 Mg Tablet PO Q6H PRN Pain, Mild (Pain Scale 1-3) Aspirin 81 mg 01/08/21 14:43 01/11/21 08:32 Aspirin Enteric Coated 81 Mg Tablet. PO 81 mg DAILY JOSE Administration Atorvastatin Calcium 80 mg 01/09/21 09:00 01/11/21 08:32 Atorvastatin Calcium 80 Mg Tablet PO 80 mg DAILY JOSE Administration Carvedilol 3.125 mg 01/08/21 14:43 01/11/21 08:32 Carvedilol 3.125 Mg Tablet PO 3.125 mg BID JOSE Administration Protocol Clopidogrel Bisulfate 75 mg 01/08/21 14:43 01/11/21 08:32 Clopidogrel Bisulfate 75 Mg Tablet PO 75 mg DAILY JOSE Administration Dicyclomine HCl 20 mg 01/08/21 14:46 Dicyclomine Hcl 10 Mg Capsule PO QID PRN Abdominal Pain Docusate Sodium 100 mg 01/08/21 14:43 Docusate Sodium 100 Mg Capsule PO DAILY PRN Constipation Enoxaparin Sodium 40 mg 01/08/21 15:00 01/10/21 15:32 Enoxaparin Sodium 40 Mg/0.4 Ml Syringe SUBCUT 40 mg Q24H JOSE Administration Gabapentin 300 mg 01/08/21 15:00 01/11/21 08:32 Gabapentin 300 Mg Capsule PO 300 mg TID JOSE Administration Vancomycin HCl 1,000 mg/ 270 mls @ 270 mls/hr 01/09/21 23:00 01/11/21 11:39 Sodium Chloride IV 270 mls/hr Q12H JOSE Administration Morphine Sulfate 4 mg 01/08/21 14:43 01/11/21 08:32 Morphine Sulfate 4 Mg/Ml Cartridge IVPUSH 4 mg Q4H PRN Administration Pain, Severe (Pain Scale 7-10) Protocol Ondansetron HCl 4 mg 01/08/21 14:43 Ondansetron Hcl 4 Mg/2 Ml Vial IVPUSH Q8H PRN Nausea and Vomiting Pharmacy Consult 1 each 01/08/21 09:27 Consult Rx Perform Med Rec MISCELLANE ONCE PRN Consult order Pharmacy Consult 1 each 01/08/21 14:43 Consult Rx Vancomycin Dosing MISCELLANE DAILY PRN Consult order Sodium Chloride 3 ml 01/08/21 16:00 01/11/21 08:32 0.9 % Sodium Chloride Flush 3 Ml Syringe IVFLUSH 3 ml QSHIFT JOSE Administration Home Medications Medication Instructions Recorded Confirmed Last Taken Type aspirin 81 mg tablet,delayed 81 mg PO DAILY 01/08/21 01/08/21 01/08/21 History release (Aspirin Low Dose) atorvastatin 80 mg tablet 1 tab PO DAILY 01/08/21 01/08/21 01/08/21 History carvedilol 3.125 mg tablet 1 tab PO BID 01/08/21 01/08/21 01/08/21 History clopidogrel 75 mg tablet 1 tab PO DAILY 01/08/21 01/08/21 01/08/21 History dicyclomine 20 mg tablet 20 mg PO QID PRN 01/08/21 01/08/21 Unknown History gabapentin 300 mg capsule 1 cap PO TID 01/08/21 01/08/21 01/08/21 History Physical Exam Vital Signs: Vital Signs: Last Vital Signs Temp 97.7 F 01/11/21 12:00 Pulse 68 01/11/21 12:00 Resp 17 01/11/21 12:00 BP 119/66 01/11/21 12:00 Pulse Ox 98 01/11/21 12:00 Body Mass Index 21.9 Const: General: cooperative, healthy appearing and comfortable Orientation/consciousness: oriented to person, oriented to place and oriented to time HENMT: Head: Yes normal to inspection Neck: Neck: Yes normal visual inspection Carotids: no bruits Chest: Chest palpation & inspection: normal inspection of the chest Resp: Effort & Inspection: normal respiratory effort and able to speak in complete sentences Auscultation: clear to auscultation bilaterally, no crackles, no rales, no rhonchi and no wheezes Cardio: Rate: regular rate Rhythm: regular rhythm Heart sounds: S1 normal heart sound present and S2 normal heart sound present Bruits: no carotid bruits Peripheral pulses: dorsalis pedis present (Palpable right, left side signal only) GI: Inspection: Yes normal to inspection Skin: Wounds: wounds noted (Moist ulcer between the 2nd and 3rd web space of the left foot) Hair: normal Neuro: General: oriented to person, oriented to place and oriented to time Cranial nerves: Yes CN's II-XII intact bilaterally and Yes Normal hearing present Cognition (Neuro): normal cognition Motor exam (neuro): 5/5 motor strength present throughout Extrem: Other: venous exam: No significant superficial varicosities or spider telangiectasias, minimal edema General: No clubbing, No cyanosis and No edema Psych: Appearance: grossly normal Mental Status: mental status grossly normal Speech and movement: Normal speech and movement present Results Labs Result diagrams: 01/11/21 09:36 01/11/21 09:36 Labs: Abnormal lab results 01/11/21 01/11/21 01/11/21 Range/Units 09:36 09:36 09:36 RBC 3.70 L (4.20-5.50) X10*6/uL Hct 36.5 L (37-47) % MCV 98.6 H (80-98) fL MPV 8.6 L (9.4-12.3) fL ESR 23 H (0-20) MM/HR Carbon Dioxide 30 H (22-29) mmol/L Random Glucose 128 H D (60-115) mg/dL C-Reactive Protein 0.95 H (< or = 0.50) mg/dL Short CBC 01/11/21 Range/Units 09:36 WBC 9.0 (4.8-10.8) X10*3/uL Hgb 12.1 (12.0-16.0) g/dl Hct 36.5 L (37-47) % Plt Count 377 (160-400) X10*3/uL BMP 01/11/21 01/11/21 06:16 09:36 Sodium 141 139 Potassium 4.6 4.2 Chloride 103 100 Carbon Dioxide 28 30 H BUN 10 10 Creatinine 0.69 0.72 Calcium 9.5 D 9.5 Urine 01/09/21 Range/Units 04:30 Urine Color YELLOW Urine Appearance CLEAR Urine pH 6.0 (5.0-8.0) Ur Specific [place] >= 1.030 H (1.005-1.025) Urine Protein NEG (NEG-TRACE) MG/DL Urine Glucose (UA) NEG (NEG) MG/DL All other labs normal. Assessment and Plan (1) PAD (peripheral artery disease): Status: Acute Patient notes nonhealing left leg ulcer. I have discussed the pathophysiology of peripheral vascular disease with the patient. I have also discussed risk factor modification. I have reviewed the patient's arterial testing which reveals mild to moderate disease in inflow and SFA the patient would benefit from a left leg endovascular peripheral angiogram with possible angioplasty, stent, and/or atherectomy. This has been discussed in detail with the patient along with risks, benefits, and complications. This includes but is not limited to bleeding, infection, heart attack, need for emergent surgical repair, limb ischemia, blood vessel damage, bleeding, puncture, kidney injury, bruising, allergic reaction, and skin reaction. The patient demonstrates a clear understanding. We will schedule as soon as possible. Thank you for allowing us to assist in this patient's care. Procedures Date of Service Date of Service: 01/11/21
--- NOTE | 2021-01-11 12:56 | W.PM.IDCN ---
History of Present Illness Data of Consult Service Date: 01/11/21 Requesting physician: Stephen Kolb / [facility] Primary Care Provider: MD GRISELDA Cole Reason for consult: left foot infection She presents with left foot pain and swelling for one and a half weeks. She has blister between 2nd and 3rd toes She has no fever or chills She has seen Dr Ellis and foot was dressed PCN causes anaphylaxi Review of Systems Review of Systems: Yes all other systems are reviewed and are negative [facility] Past Medical History Medical History Coronary artery disease DVT (deep venous thrombosis) Heart attack Peripheral artery disease Family History Family History Father Diabetes Surgical History Surgical History H/O heart artery stent H/O tubal ligation Social History Social History Household Members: Children Housing: House Alcohol intake: unknown Patient Tobacco Use Status: Tobacco use Unknown Tobacco use type: Cigarette Advance Directives Date on File: 01/08/21 service: No Current occupational status: employed Meds Allergies Allergy/AdvReac Type Severity Reaction Status Date / Time Penicillins [PCN] Allergy Severe ANAPHYLAXIS Verified 01/08/21 11:10 Active Medications: Current Medications Generic Name Dose Route Start Last Admin Trade Name Freq PRN Reason Stop Dose Admin Acetaminophen 650 mg 01/08/21 14:43 Acetaminophen 325 Mg Tablet PO Q6H PRN Pain, Mild (Pain Scale 1-3) Aspirin 81 mg 01/08/21 14:43 01/11/21 08:32 Aspirin Enteric Coated 81 Mg Tablet. PO 81 mg DAILY JOSE Administration Atorvastatin Calcium 80 mg 01/09/21 09:00 01/11/21 08:32 Atorvastatin Calcium 80 Mg Tablet PO 80 mg DAILY JOSE Administration Carvedilol 3.125 mg 01/08/21 14:43 01/11/21 08:32 Carvedilol 3.125 Mg Tablet PO 3.125 mg BID JOSE Administration Protocol Clopidogrel Bisulfate 75 mg 01/08/21 14:43 01/11/21 08:32 Clopidogrel Bisulfate 75 Mg Tablet PO 75 mg DAILY JOSE Administration Dicyclomine HCl 20 mg 01/08/21 14:46 Dicyclomine Hcl 10 Mg Capsule PO QID PRN Abdominal Pain Docusate Sodium 100 mg 01/08/21 14:43 Docusate Sodium 100 Mg Capsule PO DAILY PRN Constipation Enoxaparin Sodium 40 mg 01/08/21 15:00 01/10/21 15:32 Enoxaparin Sodium 40 Mg/0.4 Ml Syringe SUBCUT 40 mg Q24H JOSE Administration Gabapentin 300 mg 01/08/21 15:00 01/11/21 08:32 Gabapentin 300 Mg Capsule PO 300 mg TID JOSE Administration Vancomycin HCl 1,000 mg/ 270 mls @ 270 mls/hr 01/09/21 23:00 01/11/21 11:39 Sodium Chloride IV 270 mls/hr Q12H JOSE Administration Sodium Chloride 1,000 mls @ 100 mls/hr 01/12/21 06:00 Ns IVCONT .Q10H JOSE Morphine Sulfate 4 mg 01/08/21 14:43 01/11/21 08:32 Morphine Sulfate 4 Mg/Ml Cartridge IVPUSH 4 mg Q4H PRN Administration Pain, Severe (Pain Scale 7-10) Protocol Ondansetron HCl 4 mg 01/08/21 14:43 Ondansetron Hcl 4 Mg/2 Ml Vial IVPUSH Q8H PRN Nausea and Vomiting Pharmacy Consult 1 each 01/08/21 09:27 Consult Rx Perform Med Rec MISCELLANE ONCE PRN Consult order Pharmacy Consult 1 each 01/08/21 14:43 Consult Rx Vancomycin Dosing MISCELLANE DAILY PRN Consult order Sodium Chloride 3 ml 01/08/21 16:00 01/11/21 08:32 0.9 % Sodium Chloride Flush 3 Ml Syringe IVFLUSH 3 ml QSHIFT JOSE Administration Home Medications Medication Instructions Recorded Confirmed Last Taken Type aspirin 81 mg tablet,delayed 81 mg PO DAILY 01/08/21 01/08/21 01/08/21 History release (Aspirin Low Dose) atorvastatin 80 mg tablet 1 tab PO DAILY 01/08/21 01/08/21 01/08/21 History carvedilol 3.125 mg tablet 1 tab PO BID 01/08/21 01/08/21 01/08/21 History clopidogrel 75 mg tablet 1 tab PO DAILY 01/08/21 01/08/2101/08/21 History dicyclomine 20 mg tablet 20 mg PO QID PRN 01/08/21 01/08/21 Unknown History Physical Exam Vital Signs: Vital Signs: Last Vital Signs Temp 97.7 F 01/11/21 12:00 Pulse 68 01/11/21 12:00 Resp 17 01/11/21 12:00 BP 119/66 01/11/21 12:00 Pulse Ox 98 01/11/21 12:00 Body Mass Index 21.9 Const: General: cooperative HENMT: Head: Yes normal to inspection Mouth: Normal oral and palatal mucosa present Eyes: General: appearance normal, both eyes and all related structures Resp: Effort & Inspection: normal respiratory effort Cardio: Rate: regular rate Rhythm: regular rhythm GI: Palpation (GI): Soft to palpation and nontender Skin: General skin exam: no rashes or lesions noted Extrem: Other: reddened dorsum area left foot and toes Results Labs CBC & Chem 7: 01/13/21 06:01 01/13/21 06:01 Labs: Short CBC 01/11/21 Range/Units 09:36 WBC 9.0 (4.8-10.8) X10*3/uL Hgb 12.1 (12.0-16.0) g/dl Hct 36.5 L (37-47) % Plt Count 377 (160-400) X10*3/uL BMP 01/11/21 01/11/21 06:16 09:36 Sodium 141 139 Potassium 4.6 4.2 Chloride 103 100 Carbon Dioxide 28 30 H BUN 10 10 Creatinine 0.69 0.72 Calcium 9.5 D 9.5 Microbiology Microbiology Results: Microbiology 01/08/21 10:32 Blood - Venous Blood Culture - Preliminary No growth after 48 hours. 01/08/21 10:24 Blood - Venous Blood Culture - Preliminary No growth after 48 hours. Assessment and Plan (1) PAD (peripheral artery disease): Status: Acute (2) Foot ulcer, left: Status: Acute She has foot ulcers These may be just vascular ulcers rather than osteomyelitis ,but difficult to tell Would continue antibiotics Stop antibiotics soon and switch to oral if MRI shows no osteomyelitis. Follow Dr Ellis
[2021-01-11] MEDS: Enoxaparin Sodium 40 MG/0.4 ML SYRINGE SUBCUT (15:40)
--- NOTE | 2021-01-11 15:56 | MHC.CLN ---
NUTRITION CONSULT RD RECOMMENDS CARDIAC DIET AFTER NPO. VENOUS STASIS ULCERS TO TOES. CURRENT INTAKE AT [facility] APPEARS GOOD.
--- NOTE | 2021-01-11 18:25 | HO.PM.IMPN ---
Subjective Subjective Date of Service: 01/11/21 Interval History: redness/swelling improving to OR for angiogram tomorrow no fever Review of Systems Review of Systems: Yes all other systems are reviewed and are negative Physical Exam Vital Signs: Vital Signs: Last Vital Signs Temp 97.1 F 01/11/21 15:37 Pulse 61 01/11/21 15:37 Resp 17 01/11/21 15:37 BP 138/65 01/11/21 15:37 Pulse Ox 97 01/11/21 15:37 Body Mass Index 21.9 Gen: in no acute distress HEENT: sclera anicteric, moist mucus membranes Neck: supple Lungs: clear to auscultation bilaterally Heart: regular rate and rhythm, no murmurs Abd: soft, non-tender, non-distended Ext: L foot erythematous + indurated, ulcer in webspace between 2nd and 3rd toe with no drainage, no palpable DP Skin: warm/well-perfused Neuro: alert and oriented x3, no focal findings Psych: appropriate affect Objective Data Current Medications Generic Name Dose Route Start Last Admin Trade Name Evertq PRN Reason Stop Dose Admin Acetaminophen 650 mg 01/08/21 14:43 Acetaminophen 325 Mg Tablet PO Q6H PRN Pain, Mild (Pain Scale 1-3) Aspirin 81 mg 01/08/21 14:43 01/11/21 08:32 Aspirin Enteric Coated 81 Mg Tablet.Dr PO 81 mg DAILY JOSE Administration Atorvastatin Calcium 80 mg 01/09/21 09:00 01/11/21 08:32 Atorvastatin Calcium 80 Mg Tablet PO 80 mg DAILY JOSE Administration Carvedilol 3.125 mg 01/08/21 14:43 01/11/21 08:32 Carvedilol 3.125 Mg Tablet PO 3.125 mg BID JOSE Administration Protocol Clopidogrel Bisulfate 75 mg 01/08/21 14:43 01/11/21 08:32 Clopidogrel Bisulfate 75 Mg Tablet PO 75 mg DAILY JOSE Administration Dicyclomine HCl 20 mg 01/08/21 14:46 Dicyclomine Hcl 10 Mg Capsule PO QID PRN Abdominal Pain Docusate Sodium 100 mg 01/08/21 14:43 Docusate Sodium 100 Mg Capsule PO DAILY PRN Constipation Enoxaparin Sodium 40 mg 01/08/21 15:00 01/11/21 15:40 Enoxaparin Sodium 40 Mg/0.4 Ml Syringe SUBCUT 40 mg Q24H JOSE Administration Gabapentin 300 mg 01/08/21 15:00 01/11/21 15:40 Gabapentin 300 Mg Capsule PO 300 mg TID JOSE Administration Vancomycin HCl 1,000 mg/ 270 mls @ 270 mls/hr 01/09/21 23:00 01/11/21 13:15 Sodium Chloride IV Infused Q12H JOSE Infusion Sodium Chloride 1,000 mls @ 100 mls/hr 01/12/21 06:00 Ns IVCONT .Q10H JOSE Morphine Sulfate 4 mg 01/08/21 14:43 01/11/21 15:39 Morphine Sulfate 4 Mg/Ml Cartridge IVPUSH 4 mg Q4H PRN Administration Pain, Severe (Pain Scale 7-10) Protocol Ondansetron HCl 4 mg 01/08/21 14:43 Ondansetron Hcl 4 Mg/2 Ml Vial IVPUSH Q8H PRN Nausea and Vomiting Pharmacy Consult 1 each 01/08/21 09:27 Consult Rx Perform Med Rec MISCELLANE ONCE PRN Consult order Pharmacy Consult 1 each 01/08/21 14:43 Consult Rx Vancomycin Dosing MISCELLANE DAILY PRN Consult order Sodium Chloride 3 ml 01/08/21 16:00 01/11/21 15:43 0.9 % Sodium Chloride Flush 3 Ml Syringe IVFLUSH 3 ml QSHIFT JOSE Administration Labs CBC & Chem 7: 01/11/21 09:36 01/11/21 09:36 Labs: Laboratory Results - last 24 hr 01/11/21 01/11/21 01/11/21 06:16 09:36 09:36 MCV 98.6 H MCH 32.7 MCHC 33.2 RDW 13.4 Plt Count 377 MPV 8.6 L Absolute Nucleated RBC 0.000 Nucleated RBC % (auto) 0.0 ESR Anion Gap 15 Estim Creat Clear Calc 72.2 Estimated GFR > 60 Random Glucose 91 Calcium 9.5 D C-Reactive Protein Vancomycin Trough 11.9 01/11/21 01/11/21 09:36 09:36 MCV MCH MCHC RDW Plt Count MPV Absolute Nucleated RBC Nucleated RBC % (auto) ESR 23 H Anion Gap 13 Estim Creat Clear Calc 69.1 Estimated GFR > 60 Random Glucose 128 H D Calcium 9.5 C-Reactive Protein 0.95 H Vancomycin Trough Assessment and Plan (1) Foot ulcer, left: Status: Acute (2) Cellulitis: Status: Acute (3) Chronic anticoagulation: Status: Acute (4) DVT (deep venous thrombosis): Status: Acute Assessment and Plan: hospital d#4 65yo F with hx [place], PAD admitted for L foot ulcer with concern of cellulitis # left foot ulcer/cellulitis # PAD - angiogram tomorrow per Vascular Surgery - on vancomycin d#4. per ID d/c ABX if no evidence of osteomyelitis on MRI- to be done tomorrow # CAD s/p PCI # PVD # continue DAPT, statin, b-mahogany # HTN - continue carvedilol # VTE ppx - LMWH Quality Stroke Does the patient have a stroke diagnosis?: No VTE Prior VTE?: No VTE Risk Level:: Medical - moderate - high VTE Device Contraindication: Treatment Not Indicated VTE Drug Contraindication: N/A - Med Ordered
[2021-01-12] VITALS (12 sets, daily range): BP systolic 118–176; BP diastolic 63–83; PULSE 63–95; RESP 14–20; TEMP 36.1–37.1; O2SAT 92–99
[2021-01-12 07:01] LABS: Estimated Average Glucose 94 mg/dL; Hemoglobin A1c % 4.9 %
--- NOTE | 2021-01-12 09:24 | W.PM.OPN ---
Operative Note Operative Note Date of Service: 01/12/21 Narrative: Angiogram report from [facility] Preoperative diagnosis: Atherosclerosis of left lower extremity with nonhealing ulcer Postoperative diagnosis: Same Procedure: 1. Ultrasound-guided right common femoral access 2. Aortogram with left lower extremity runoff 3. Angioplasty of left popliteal artery 4. Stent left SFA Surgeon:Alireza Ellis M.D. Circuit Design Engineer:None Anesthesia: Local with moderate conscious sedation for a total of 55 minutes, performed by fl Specimens:none Drains:none Estimated blood loss: Less than 10 ml Indications: 65-year-old female presented to the hospital with nonhealing left lower extremity ulcer. She had undergone noninvasive testing. She now presents for endovascular intervention. patient has signed the informed consent after reviewing risks, complications, benefits, and alternatives previously discussed with the patient. The patient was given the opportunity to ask any additional questions or voice any concerns. All questions were answered to the patient's satisfaction. Procedure in detail: Patient was brought to the angiography suite prior to which a time-out was called for patient identification and site verification. Bilateral groins were prepped and draped in the standard surgical fashion. Under ultrasound guidance right common femoral was punctured with micro puncture needle and wire. Subsequently a precision 4 Mosotho sheath was then placed. Light Extraction wire was advanced to the level of the aorta. 4 Mosotho Flush catheter was brought up and parked at the level of the renal arteries. Aortogram was then undertaken. Catheter was brought down to the level of the iliac bifurcation. Iliacs were subsequently imaged. Catheter was then brought in up and over to the left side SFA. Runoff study was then undertaken. At this point patient was recognized to have SFA and popliteal disease. There was 1 vessel runoff. 4000 units of systemic heparin was administered. After 5 minutes of circulation time up and over 6 Mosotho sheath was then placed. 035 glidewire Advantage was then placed. We were unable to traverse the below-knee lesion. This appeared to be significantly chronic. We then turned our attention to the behind knee popliteal. We 1st angioplastied this lesion with a 5 x 40 regular balloon. Subsequently we plasty this with a 5 x 40 drug coated balloon. This was brought into position in under 3 minutes and insufflated for a total of 3 minutes in duration. Then we turned our attention to the mid SFA. There was multiple moderate stenotic lesions in that area. We then placed a 6 x 80 self expanding stent. This was followed by a 6 x 80 balloon. Once this was accomplished completion angiogram demonstrated excellent result catheter wire sheath was brought back to the ipsilateral side. StarClose closure device was then deployed. Interpretation of films: 1. Ultrasound demonstrates appropriate femoral puncture. Image of which was saved. 2. Aortogram demonstrates aneurysmal aorta. Minimal disease. Appropriate take-off of the renals. 3. Iliac images demonstrate high-grade disease at the bifurcation. Multiple stenotic lesions. 4. Left lower extremity study demonstrated good flow through the common femoral and profundus femorals SFA had mild to moderate disease high-grade stenosis at the mid SFA high-grade behind knee popliteal below-knee had 1 vessel runoff this did feed the TP trunk there was collaterals a chronic occlusion and then the peroneal was the main runoff. Completion angiogram demonstrated excellent flow through the SFA and popliteal once again 1 vessel runoff via collateral flow Conclusion: 1. Successful angiogram, plasty left popliteal, and plasty of left SFA. Due to the use of drug coated balloon the patient will require aspirin and Plavix for a minimum of 6 months. This note is constructed using voice recognition software. While every effort has been made to ensure accuracy, joint terminal attack controller errors may have been included. Thank you for allowing me to participate in the care of your patient. Yours sincerely, Alireza Ellis MD, FACS, R.P.V.I.
[2021-01-12] MEDS: Gabapentin 300 MG CAPSULE PO ×3 (09:36→20:45)
[2021-01-12] MEDS: iohexoL 300 MG/ML 50 ML INFUS..BTL IV (09:42)
[2021-01-12] MEDS: iohexoL 300 MG/ML 100 ML INFUS..BTL IV (09:42)
[2021-01-12] MEDS: Clopidogrel Bisulfate 75 MG TABLET PO (10:04)
[2021-01-12] MEDS: vancomycin HCL 1,000 MG in 0.9 % Sodium Chloride 250 ML 270 MG IV ×2 (10:45→23:01)
[2021-01-12] MEDS: Morphine Sulfate 4 MG/ML CARTRIDGE IVPUSH ×2 (14:10→19:38)
[2021-01-12] MEDS: Atorvastatin Calcium 80 MG TABLET PO (14:13)
[2021-01-12] MEDS: Enoxaparin Sodium 40 MG/0.4 ML SYRINGE SUBCUT (14:13)
--- NOTE | 2021-01-12 14:30 | MHC.CM.PN ---
EMR REVIEWED, PT IN OR TODAY FOR ANGIOGRAM, AWAITING FOR MRI RESULTS IF NO OSTEOMYELITIS ABX WILL BE D/C'D. PLAN REMAINS TO GO HOME W/NO SERVICES. CM TO CONT TO FOLLOW.
--- NOTE | 2021-01-12 14:40 | HO.PM.IMPN ---
Subjective Subjective Date of Service: 01/12/21 Interval History: to OR today: 1. Ultrasound-guided right common femoral access 2. Aortogram with left lower extremity runoff 3. Angioplasty of left popliteal artery 4. Stent left SFA c/o pain of L foot no fever Review of Systems Review of Systems: Yes all other systems are reviewed and are negative Physical Exam Vital Signs: Vital Signs: Last Vital Signs Temp 97.2 F 01/12/21 12:45 Pulse 82 01/12/21 12:45 Resp 16 01/12/21 12:45 BP 139/72 01/12/21 12:45 Pulse Ox 97 01/12/21 12:45 Body Mass Index 21.9 Gen: in no acute distress HEENT: sclera anicteric, moist mucus membranes Neck: supple Lungs: clear to auscultation bilaterally Heart: regular rate and rhythm, no murmurs Abd: soft, non-tender, non-distended Ext: L foot erythematous + indurated, ulcer in webspace between 2nd and 3rd toe with no drainage, no palpable DP Skin: warm/well-perfused Neuro: alert and oriented x3, no focal findings Psych: appropriate affect Objective Data Current Medications Generic Name Dose Route Start Last Admin Trade Name Freq PRN Reason Stop Dose Admin Acetaminophen 650 mg 01/08/21 14:43 Acetaminophen 325 Mg Tablet PO Q6H PRN Pain, Mild (Pain Scale 1-3) Aspirin 81 mg 01/08/21 14:43 01/12/21 13:39 Aspirin Enteric Coated 81 Mg Tablet.Dr PO Not Given DAILY [facility] Atorvastatin Calcium 80 mg 01/09/21 09:00 01/12/21 14:13 Atorvastatin Calcium 80 Mg Tablet PO 80 mg DAILY [facility] Administration Carvedilol 3.125 mg 01/08/21 14:43 01/12/21 13:40 Carvedilol 3.125 Mg Tablet PO Not Given BID [facility] Protocol Clopidogrel Bisulfate 75 mg 01/08/21 14:43 01/12/21 10:04 Clopidogrel Bisulfate 75 Mg Tablet PO 75 mg DAILY [facility] Administration Dicyclomine HCl 20 mg 01/08/21 14:46 Dicyclomine Hcl 10 Mg Capsule PO QID PRN Abdominal Pain Docusate Sodium 100 mg 01/08/21 14:43 Docusate Sodium 100 Mg Capsule PO DAILY PRN Constipation Enoxaparin Sodium 40 mg 01/08/21 15:00 01/12/21 14:13 Enoxaparin Sodium 40 Mg/0.4 Ml Syringe SUBCUT 40 mg Q24H JOSE Administration Gabapentin 300 mg 01/08/21 15:00 01/12/21 14:13 Gabapentin 300 Mg Capsule PO 300 mg TID JOSE Administration Vancomycin HCl 1,000 mg/ 270 mls @ 270 mls/hr 01/09/21 23:00 01/12/21 12:30 Sodium Chloride IV Infused Q12H [facility] Infusion Sodium Chloride 1,000 mls @ 100 mls/hr 01/12/21 06:00 01/12/21 14:16 Ns IVCONT Not Given .Q10H JOSE Morphine Sulfate 4 mg 01/08/21 14:43 01/12/21 14:10 Morphine Sulfate 4 Mg/Ml Cartridge IVPUSH 4 mg Q4H PRN Administration Pain, Severe (Pain Scale 7-10) Protocol Ondansetron HCl 4 mg 01/08/21 14:43 Ondansetron Hcl 4 Mg/2 Ml Vial IVPUSH Q8H PRN Nausea and Vomiting Pharmacy Consult 1 each 01/08/21 09:27 Consult Rx Perform Med Rec MISCELLANE ONCE PRN Consult order Pharmacy Consult 1 each 01/08/21 14:43 Consult Rx Vancomycin Dosing MISCELLANE DAILY PRN Consult order Sodium Chloride 3 ml 01/08/21 16:00 01/12/21 12:29 0.9 % Sodium Chloride Flush 3 Ml Syringe IVFLUSH Not Given QSHIFT [facility] Labs CBC & Chem 7: 01/11/21 09:36 01/11/21 09:36 Labs: Laboratory Results - last 24 hr 01/12/21 06:05 Estimat Average Glucose 94 Hemoglobin A1c % 4.9 Assessment and Plan (1) Foot ulcer, left: Status: Acute (2) Cellulitis: Status: Acute (3) Chronic anticoagulation: Status: Acute (4) DVT (deep venous thrombosis): Status: Acute Assessment and Plan: hospital d#5 65yo F with hx [place], PAD admitted for L foot ulcer with concern of cellulitis # left foot ulcer/cellulitis # PAD - s/p angioplasty of left popliteal artery + stent left SFA today. continue DAPT. - on vancomycin d#5. per ID d/c ABX if no evidence of osteomyelitis on MRI- pending # CAD s/p PCI # PVD # continue DAPT, statin, b-mahogany # HTN - continue carvedilol # VTE ppx - LMWH # dispo - pending MRI results Quality Stroke Does the patient have a stroke diagnosis?: No VTE Prior VTE?: No VTE Risk Level:: Medical - moderate - high VTE Device Contraindication: Treatment Not Indicated VTE Drug Contraindication: N/A - Med Ordered
[2021-01-12] MEDS: 0.9 % Sodium Chloride Flush 3 ML SYRINGE IVFLUSH (19:39)
[2021-01-12] MEDS: carvediloL 3.125 MG TABLET PO (20:45)
[2021-01-12 22:36] LABS: Creatinine Clr Calc Pharmacy 72.2; Estimated Glomerular Filt Rate > 60
[2021-01-12 22:44] LABS: Vancomycin Trough 14.8 mcg/mL (10.0-20.0)
[2021-01-12] MEDS: 0.9 % Sodium Chloride 1,000 ML 100 ML IVCONT (23:03)
[2021-01-13] VITALS (8 sets, daily range): BP systolic 110–145; BP diastolic 59–80; PULSE 76–93; RESP 16–18; TEMP 36.2–36.5; O2SAT 94–97
[2021-01-13] MEDS: Morphine Sulfate 4 MG/ML CARTRIDGE IVPUSH ×3 (05:34→22:33)
[2021-01-13 06:37] LABS: Hemoglobin 10.8 g/dl (12.0-16.0); Mean Corpuscular HGB Conc 32.7 g/dl (31.0-35.0); Mean Corpuscular Hemoglobin 32.6 pg (27.0-33.0); Mean Corpuscular Volume 99.7 fL (80-98); Mean Platelet Volume 8.9 fL (9.4-12.3); Platelet Count 346 X10*3/uL (160-400); Red Blood Count 3.31 X10*6/uL (4.20-5.50); Red Cell Distribution Width 13.4 % (11.0-16.0); White Blood Count 9.9 X10*3/uL (4.8-10.8)
[2021-01-13 07:06] LABS: Anion Gap 10 (12-20); Blood Urea Nitrogen 6 mg/dL (9-16); Calcium 8.6 mg/dL (8.4-10.2); Carbon Dioxide 27 mmol/L (22-29); Chloride 106 mmol/L (96-108); Creatinine Clr Calc Pharmacy 73.2; Estimated Glomerular Filt Rate > 60; Glucose Random 100 mg/dL (60-115); Potassium 4.2 mmol/L (3.3-5.1); Sodium 139 mmol/L (135-145)
[2021-01-13] MEDS: Aspirin Enteric Coated 81 MG TABLET.DR PO (08:12)
[2021-01-13] MEDS: Atorvastatin Calcium 80 MG TABLET PO (08:12)
[2021-01-13] MEDS: carvediloL 3.125 MG TABLET PO ×2 (08:12→20:32)
[2021-01-13] MEDS: Gabapentin 300 MG CAPSULE PO ×3 (08:12→20:32)
[2021-01-13] MEDS: Clopidogrel Bisulfate 75 MG TABLET PO (08:12)
[2021-01-13] MEDS: Docusate Sodium 100 MG CAPSULE PO (08:15)
--- NOTE | 2021-01-13 09:42 | MHC.CM.PN ---
CM ATTEMPTED TO CONTACT IR AT 0839 TO DETERMINE TIME OF PICC LINE PLACEMENT, NO ANSWER, MESSAGE LEFT W/CM CONTACT NUMBER. CM ATTEMPTED TO CALL BACK AT 9:43AM D/T NO ANSWER, SECOND MESSAGE LEFT.
--- NOTE | 2021-01-13 09:57 | HO.VASCPN ---
Subjective Subjective Date of Service: 01/13/21 Patient reports: no new complaints, feels better and pain is less Interval history: Patient seen and examined. No significant events overnight. Doing with significantly better status post endovascular intervention. She notes that the pain in the left lower extremity has significantly improved. In addition she has undergone MRI which is concerning for osteomyelitis. She is being worked up for that as well. Physical Exam Vital Signs: Vital Signs: Last Vital Signs Temp 97.2 F 01/13/21 07:48 Pulse 79 01/13/21 07:48 Resp 17 01/13/21 07:48 BP 119/71 01/13/21 07:48 Pulse Ox 95 01/13/21 07:48 Body Mass Index 21.9 Const: General: cooperative, healthy appearing and no acute distress Orientation/consciousness: oriented to person, oriented to place and oriented to time HENMT: Head: Yes normal to inspection Neck: Carotids: no bruits Chest: Chest palpation & inspection: normal inspection of the chest Resp: Effort & Inspection: normal respiratory effort and able to speak in complete sentences Auscultation: clear to auscultation bilaterally Cardio: Rate: regular rate Heart sounds: S1 normal heart sound present and S2 normal heart sound present Peripheral pulses: dorsalis pedis present on the left (Left side DP signal) GI: Inspection: Yes normal to inspection Skin: General skin exam: no rashes or lesions noted Wounds: wounds noted (Left 2nd and 3rd webspace) Neuro: General: oriented to person, oriented to place, oriented to time and CN's II-XI intact bilaterally Extrem: General: Yes normal to inspection, Yes full ROM and Yes no clubbing, cyanosis or edema Psych: Appearance: grossly normal and well kempt Speech and movement: Normal speech and movement present Affect: normal affect Progress Note: A&P Assessment and plan (1) PAD (peripheral artery disease): Status: Acute Assessment and Plan: Patient doing extremely well status post endovascular intervention. Would hope that this little bit will improve her circulatory status and improve wound healing. Pain has improved. She will be maintained on aspirin and Plavix for a minimum of 6 months. In addition she has this wound between this 2nd and 3rd webspace. Will evaluate this tomorrow. Await Infectious Disease input regarding long-term antibiotics for her osteomyelitis. Thank you for allowing us to assist in her care. If there are any questions or concerns please do not hesitate to contact us. Fall Risk Details Current Medications: Current Medications Generic Name Dose Route Start Last Admin Trade Name Freq PRN Reason Stop Dose Admin Acetaminophen 650 mg 01/08/21 14:43 Acetaminophen 325 Mg Tablet PO Q6H PRN Pain, Mild (Pain Scale 1-3) Aspirin 81 mg 01/08/21 14:43 01/13/21 08:12 Aspirin Enteric Coated 81 Mg Tablet.Dr PO 81 mg DAILY JOSE Administration Atorvastatin Calcium 80 mg 01/09/21 09:00 01/13/21 08:12 Atorvastatin Calcium 80 Mg Tablet PO 80 mg DAILY JOSE Administration Carvedilol 3.125 mg 01/08/21 14:43 01/13/21 08:12 Carvedilol 3.125 Mg Tablet PO 3.125 mg BID JOSE Administration Protocol Clopidogrel Bisulfate 75 mg 01/08/21 14:43 01/13/21 08:12 Clopidogrel Bisulfate 75 Mg Tablet PO 75 mg DAILY JOSE Administration Dicyclomine HCl 20 mg 01/08/21 14:46 Dicyclomine Hcl 10 Mg Capsule PO QID PRN Abdominal Pain Docusate Sodium 100 mg 01/08/21 14:43 01/13/21 08:15 Docusate Sodium 100 Mg Capsule PO 100 mg DAILY PRN Administration Constipation Enoxaparin Sodium 40 mg 01/08/21 15:00 01/12/21 14:13 Enoxaparin Sodium 40 Mg/0.4 Ml Syringe SUBCUT 40 mg Q24H JOSE Administration Gabapentin 300 mg 01/08/21 15:00 01/13/21 08:12 Gabapentin 300 Mg Capsule PO 300 mg TID JOSE Administration Vancomycin HCl 1,000 mg/ 270 mls @ 270 mls/hr 01/09/21 23:00 01/13/21 00:09 Sodium Chloride IV Infused Q12H JOSE Infusion Morphine Sulfate 4 mg 01/08/21 14:43 01/13/21 05:34 Morphine Sulfate 4 Mg/Ml Cartridge IVPUSH 4 mg Q4H PRN Administration Pain, Severe (Pain Scale 7-10) Protocol Ondansetron HCl 4 mg 01/08/21 14:43 Ondansetron Hcl 4 Mg/2 Ml Vial IVPUSH Q8H PRN Nausea and Vomiting Pharmacy Consult 1 each 01/08/21 09:27 Consult Rx Perform Med Rec MISCELLANE ONCE PRN Consult order Pharmacy Consult 1 each 01/08/21 14:43 Consult Rx Vancomycin Dosing MISCELLANE DAILY PRN Consult order Sodium Chloride 3 ml 01/08/21 16:00 01/13/21 07:34 0.9 % Sodium Chloride Flush 3 Ml Syringe IVFLUSH Not Given QSHIFT JOSE Time Spent With Patient Time: Total time spent is greater than 50% in coordination of care (as documented) at patient's floor/unit and/or counseling patient: Time with patient: 15 - 24 minutes Procedures Date of Service Date of Service: 01/13/21 Quality Stroke Does the patient have a stroke diagnosis?: No VTE Prior VTE?: No VTE Risk Level:: Medical - moderate - high VTE Device Contraindication: Treatment Not Indicated VTE Drug Contraindication: N/A - Med Ordered
[2021-01-13] MEDS: vancomycin HCL 1,000 MG in 0.9 % Sodium Chloride 250 ML 270 MG IV ×2 (10:48→22:34)
--- NOTE | 2021-01-13 10:53 | HO.PM.IMPN ---
Subjective Subjective Date of Service: 01/13/21 Interval History: Foot/toe pain improved MRI shows osteomyelitis + abscess Review of Systems Review of Systems: Yes all other systems are reviewed and are negative Physical Exam Vital Signs: Vital Signs: Last Vital Signs Temp 97.2 F 01/13/21 07:48 Pulse 79 01/13/21 07:48 Resp 17 01/13/21 07:48 BP 119/71 01/13/21 07:48 Pulse Ox 95 01/13/21 07:48 Body Mass Index 21.9 Gen: in no acute distress HEENT: sclera anicteric, moist mucus membranes Neck: supple Lungs: clear to auscultation bilaterally Heart: regular rate and rhythm, no murmurs Abd: soft, non-tender, non-distended Ext: L foot erythematous + indurated, ulcer in webspace between 2nd and 3rd toe with no drainage Skin: warm/well-perfused Neuro: alert and oriented x3, no focal findings Psych: appropriate affect Objective Data Current Medications Generic Name Dose Route Start Last Admin Trade Name Evertq PRN Reason Stop Dose Admin Acetaminophen 650 mg 01/08/21 14:43 Acetaminophen 325 Mg Tablet PO Q6H PRN Pain, Mild (Pain Scale 1-3) Aspirin 81 mg 01/08/21 14:43 01/13/21 08:12 Aspirin Enteric Coated 81 Mg Tablet.Dr PO 81 mg DAILY JOSE Administration Atorvastatin Calcium 80 mg 01/09/21 09:00 01/13/21 08:12 Atorvastatin Calcium 80 Mg Tablet PO 80 mg DAILY JOSE Administration Carvedilol 3.125 mg 01/08/21 14:43 01/13/21 08:12 Carvedilol 3.125 Mg Tablet PO 3.125 mg BID JOSE Administration Protocol Clopidogrel Bisulfate 75 mg 01/08/21 14:43 01/13/21 08:12 Clopidogrel Bisulfate 75 Mg Tablet PO 75 mg DAILY JOSE Administration Dicyclomine HCl 20 mg 01/08/21 14:46 Dicyclomine Hcl 10 Mg Capsule PO QID PRN Abdominal Pain Docusate Sodium 100 mg 01/08/21 14:43 01/13/21 08:15 Docusate Sodium 100 Mg Capsule PO 100 mg DAILY PRN Administration Constipation Enoxaparin Sodium 40 mg 01/08/21 15:00 01/12/21 14:13 Enoxaparin Sodium 40 Mg/0.4 Ml Syringe SUBCUT 40 mg Q24H JOSE Administration Gabapentin 300 mg 01/08/21 15:00 01/13/21 08:12 Gabapentin 300 Mg Capsule PO 300 mg TID JOSE Administration Vancomycin HCl 1,000 mg/ 270 mls @ 270 mls/hr 01/09/21 23:00 01/13/21 10:48 Sodium Chloride IV 270 mls/hr Q12H JOSE Administration Morphine Sulfate 4 mg 01/08/21 14:43 01/13/21 05:34 Morphine Sulfate 4 Mg/Ml Cartridge IVPUSH 4 mg Q4H PRN Administration Pain, Severe (Pain Scale 7-10) Protocol Ondansetron HCl 4 mg 01/08/21 14:43 Ondansetron Hcl 4 Mg/2 Ml Vial IVPUSH Q8H PRN Nausea and Vomiting Pharmacy Consult 1 each 01/08/21 09:27 Consult Rx Perform Med Rec MISCELLANE ONCE PRN Consult order Pharmacy Consult 1 each 01/08/21 14:43 Consult Rx Vancomycin Dosing MISCELLANE DAILY PRN Consult order Sodium Chloride 3 ml 01/08/21 16:00 01/13/21 07:34 0.9 % Sodium Chloride Flush 3 Ml Syringe IVFLUSH Not Given QSHIFT [facility] Labs CBC & Chem 7: 01/13/21 06:01 01/13/21 06:01 Labs: Laboratory Results - last 24 hr 01/12/21 01/12/21 01/13/21 21:52 21:52 06:01 MCV 99.7 H MCH 32.6 MCHC 32.7 RDW 13.4 Plt Count 346 MPV 8.9 L Absolute Nucleated RBC 0.000 Nucleated RBC % (auto) 0.0 Anion Gap Estim Creat Clear Calc 72.2 Estimated GFR > 60 Random Glucose Calcium Vancomycin Trough 14.8 01/13/21 06:01 MCV MCH MCHC RDW Plt Count MPV Absolute Nucleated RBC Nucleated RBC % (auto) Anion Gap 10 L Estim Creat Clear Calc 73.2 Estimated GFR > 60 Random Glucose 100 Calcium 8.6 D Vancomycin Trough Impressions Foot MRI 01/12/21 13:14 IMPRESSION: 1. Findings consistent with acute osteomyelitis within the 2nd distal phalanx. Adjacent soft tissue fluid collection measuring 0.6 cm, likely representing a small abscess. 2. Edema within the intrinsic musculature of the foot, which can be seen in diabetic patients. Assessment and Plan (1) Foot ulcer, left: Status: Acute (2) Cellulitis: Status: Acute (3) Chronic anticoagulation: Status: Acute (4) DVT (deep venous thrombosis): Status: Acute Assessment and Plan: hospital d#6 65yo F with hx CT, PAD admitted for L foot ulcer with concern of cellulitis, found to have osteomyelitis # PAD - POD#1 angioplasty of left popliteal artery + stent left. continue DAPT. # L 2nd phalanx osteomyelitis and abscess - on vancomycin d#6- discuss ABX with ID- likely ertapenem x 6 wk- will obtain PICC line - per Vasc Surg, bedside drainage of abscess tomorrow # CAD s/p PCI # PVD # continue DAPT, statin, b-mahogany # HTN - continue carvedilol # VTE ppx - LMWH # dispo - [facility] Quality Stroke Does the patient have a stroke diagnosis?: No VTE Prior VTE?: No VTE Risk Level:: Medical - moderate - high VTE Device Contraindication: Treatment Not Indicated VTE Drug Contraindication: N/A - Med Ordered
--- NOTE | 2021-01-13 14:48 | MHC.CM.PN ---
PER INTERDISCIPLINARY ROUNDS PT WILL HAVE ABSCESS DRAINED IN AM W/DR. OLIVA AND HOSPITALIST CONFIRMED W/CM THAT PT'S FINAL IV ABX WILL BE VANCO 1GM Q12HRS X 6WKS, [facility] AND [facility] FOLLOWING, PER [facility] LIAISON PT IS 100% COVERED IV ABX.
[2021-01-13] MEDS: Enoxaparin Sodium 40 MG/0.4 ML SYRINGE SUBCUT (15:16)
[2021-01-13] MEDS: 0.9 % Sodium Chloride Flush 3 ML SYRINGE IVFLUSH ×2 (15:17→22:34)
--- NOTE | 2021-01-13 17:00 | HO.PICC ---
PICC Line Insertion NPICC Diagnosis: OSTEOMYELITIS Indication: CH[facility] IV ANTIBIOTICS Pertinent Labs: REVIEWED Technique: Following informed consent including risks, benefits and alternatives and using sterile technique including cap and mask, sterile gown, glove and drape, the RIGHT arm was prepped and draped in the usual sterile fashion of full barrier technique with CHG. Following completion of [place] Protocol the skin and soft tissues were anesthetized with 1% Lidocaine plain. Using ultrasound guidance, BASILIC vein access was obtained IN SINGLE ATTEMPT BY THIS RN. Over an 0.018 wire through peel-away sheath, a 4-NEW ZEALANDER, SINGLE LUMEN, PASV PICC line was positioned. Catheter length is 40 CM internal length, 0 CM external length, for a total trimmed length of 40 CM. The procedure was performed in S-272. Tip verification was performed by Citlali Shaw with Moy 3CG. Tip located in SVC. Ultrasound was used to document vein patency and for needle entry. A formal ultrasound picture and cardiac rhythm strip was recorded. Vascular Venetian Blind Tape Cutter has released the line for use and it is currently dressed with a StatLock, Tegaderm, and CHG disc. Verification has been performed for blood return and line patency. Arm Circumference: 26.5 CM Equipment: Continuent POWERPICC SOLO Catheter Type: SINGLE LUMEN, PASV, 4-NEW ZEALANDER Lot #: [id number]
[2021-01-14 03:19] VITALS: BP 119/63; PULSE 93; RESP 18; TEMP 36.4; O2SAT 94
[2021-01-14] MEDS: Morphine Sulfate 4 MG/ML CARTRIDGE IVPUSH ×2 (04:48→12:49)
[2021-01-14 08:00] VITALS: BP 102/52; PULSE 71; RESP 17; TEMP 36.2; O2SAT 97
[2021-01-14] MEDS: Gabapentin 300 MG CAPSULE PO ×2 (08:46→15:52)
[2021-01-14] MEDS: carvediloL 3.125 MG TABLET PO (08:47)
[2021-01-14] MEDS: Clopidogrel Bisulfate 75 MG TABLET PO (08:47)
[2021-01-14] MEDS: Aspirin Enteric Coated 81 MG TABLET.DR PO (08:47)
[2021-01-14] MEDS: Atorvastatin Calcium 80 MG TABLET PO (08:47)
[2021-01-14] MEDS: 0.9 % Sodium Chloride Flush 3 ML SYRINGE IVFLUSH ×2 (08:47→15:53)
[2021-01-14] MEDS: vancomycin HCL 1,000 MG in 0.9 % Sodium Chloride 250 ML 270 MG IV ×2 (11:02→18:23)
--- NOTE | 2021-01-14 11:46 | W.MHC.F2F ---
Service Date Service Date: 01/14/21 Encounter Date of encounter: 01/14/21 Reasons for Services Signs and symptoms assessed: PICC, long-term IV ABX, wound care Reason for chcf: wound care, administration of IV, SQ, or IM injection, central line care, postoperative assessment and/or care, medication management and medication treatment Reason for physical therapy: home safety and mobility, therapeutic exercises, restore joint function, gait/transfer training, assess need for DME, ADL training and energy conservation MD Overseeing Care: Toño Valdovinos Homebound: Leaving the home is medically contraindicated at this time without the asist of a device and/or another person due th the listed conditions above and below. Reason homebound: immunosuppression / infection risk Homebound supporting statement: [place]08-01/14/21 [place] [facility] [place] S/p revascularization of the LLE. Certification: Based on the above findings, I certify that this patient is confined to the home and needs intermittent chcf care, physical therapy and/or speech therapy, or continues to need occupational therapy. The patient is under my care, and I have initiated the establishment of the plan of care. The patient will be followed by a physician who will periodically review the plan of care.
--- NOTE | 2021-01-14 11:56 | P.DS_ITS ---
DS: Providers Provider Date of Service: 01/14/21 Date of admission: 01/08/21 11:50 Date of discharge: 01/14/21 Primary care physician: Toño Valdovinos MD Consults: 01/09/21 08:45 Consult to Vascular Surgery Routine Consulting Provider: Alireza Ellis Reason for consultation: left foot ulcer pad Has provider been notified: No 01/09/21 16:51 Consult to Infectious Diseases Stat Consulting Provider: Marisol Mendosa Reason for consultation: left foot cellulitis and ulcers Has provider been notified: No DS: Diagnosis Discharge Diagnosis (1) Foot ulcer, left: Status: Acute (2) Osteomyelitis of toe of left foot: Status: Acute (3) PAD (peripheral artery disease): Status: Acute DS: Medications Discharge Medications Home Medications: Home Medications Medication Instructions Recorded Confirmed aspirin 81 mg tablet,delayed 81 mg PO DAILY 01/08/21 01/08/21 release (Aspirin Low Dose) atorvastatin 80 mg tablet 1 tab PO DAILY 01/08/21 01/08/21 carvedilol 3.125 mg tablet 1 tab PO BID 01/08/21 01/08/21 clopidogrel 75 mg tablet 1 tab PO DAILY 01/08/21 01/08/21 dicyclomine 20 mg tablet 20 mg PO QID PRN 01/08/21 01/08/21 Previous Rx's Medication Instructions Recorded gabapentin 300 mg capsule 1 cap PO TID #90 cap 01/14/21 hydrocodone 5 mg-acetaminophen 325 1 tab PO Q8H PRN #12 tab 01/14/21 mg tablet vancomycin HCl 100 mg/mL in 1 g IV Q12H #72 vial 01/14/21 sterile water intravenous solution DS: Summary Hospital Course Hospital Course: From admission H+P, 01/08/21, by hospitalist Vaughn Jeong: Female with past medical history of coronary artery disease status post UT with stent, history of peripheral arterial disease status post angioplasty with a stent in the left lower extremity, history of DVT, who presents to the hospital with complaints of ulcers and infection in her 2nd and 3rd toe of her left foot.? Patient reports that her symptoms started about a week and a half ago, pain is 8/10, persistent, sharp shooting throbbing pain, no fever or chills, patient reports that it started with a blister initially but now has pus and pain.? There is also redness, no swelling.? Patient reports that she had angioplasty of her left lower extremity due to clots about 6 years ago and there is a stent in her left leg. She denies any chest pain, no shortness of breath, no cough, no abdominal pain nausea or vomiting, no diarrhea constipation, no urinary symptoms and no lower extremity edema, no numbness tingling, no headache or change in vision. Vitals reviewed stable Lab significant for WBC count of 10.0, otherwise no abnormality. Foot x-ray shows no bony destructive process, per cystitis or gastric inguinal soft tissue, no visible fracture dislocation The patient was admitted with infected left foot ulcer with concern of cellulitis but was ultimately found to have osteomyelitis and abscess of the left 2nd phalanx. She was treated with vancomycin. She was not bacteremic. She was seen by the vascular surgeon and underwent angiography, followed by angioplasty of the left popliteal artery and stenting of the left superficial femoral artery on 01/12/21. The abscess was debrided at the bedside. Dual antiplatelet therapy was continued. PICC line was placed and she was discharged with VNA services to complete a total of 6 weeks of IV vancomycin with weekly labs as below. She will need follow up with her primary care doctor as well as the vascular surgeon and infectious disease specialist. Time Spent with Patient Time attestation: Total time spent providing and/or coordinating discharge services: Discharge coordination time: Greater than 30 minutes Quality: Stroke Does the patient have a stroke diagnosis?: No Physical Exam Vital Signs: Vital Signs: Last Vital Signs Temp 97.1 F 01/14/21 08:00 Pulse 71 01/14/21 08:00 Resp 17 01/14/21 08:00 BP 102/52 L 01/14/21 08:00 Pulse Ox 97 01/14/21 08:00 Body Mass Index 21.9 Gen: in no acute distress HEENT: sclera anicteric, moist mucus membranes Neck: supple Lungs: clear to auscultation bilaterally Heart: regular rate and rhythm, no murmurs Abd: soft, non-tender, non-distended Ext: L foot erythematous + indurated, ulcer in webspace between 2nd and 3rd toe with no drainage Skin: warm/well-perfused Neuro: alert and oriented x3, no focal findings Psych: appropriate affect DS: Data Data Completed and Pending Completed studies during hospitalization [Text1]: Laboratory Results WBC 9.9 X10*3/uL (4.8-10.8) 01/13/21 06:01 RBC 3.31 X10*6/uL (4.20-5.50) L 01/13/21 06:01 Hgb 10.8 g/dl (12.0-16.0) L 01/13/21 06:01 Hct 33.0 % (37-47) L 01/13/21 06:01 MCV 99.7 fL (80-98) H 01/13/21 06:01 MCH 32.6 pg (27.0-33.0) 01/13/21 06:01 MCHC 32.7 g/dl (31.0-35.0) 01/13/21 06:01 RDW 13.4 % (11.0-16.0) 01/13/21 06:01 Plt Count 346 X10*3/uL (160-400) 01/13/21 06:01 MPV 8.9 fL (9.4-12.3) L 01/13/21 06:01 Immature Gran % (Auto) 0.3 % (0.0-0.4) 01/09/21 05:53 Neut % (Auto) 54.7 % (45-73) 01/09/21 05:53 Lymph % (Auto) 33.0 % (20-40) 01/09/21 05:53 [place] % (Auto) 8.5 % (2-11) 01/09/21 05:53 Eos % (Auto) 3.1 % (0-4) 01/09/21 05:53 Baso % (Auto) 0.4 % (0-2) 01/09/21 05:53 Lymph # (Auto) 2.4 X10*3/uL (1.2-4.9) 01/09/21 05:53 [place] # (Auto) 0.6 X10*3/uL (0.1-1.2) 01/09/21 05:53 Eos # (Auto) 0.2 X10*3/uL (0.0-0.4) 01/09/21 05:53 Baso # (Auto) 0.0 X10*3/uL (0.0-0.2) 01/09/21 05:53 Abs Immat Gran (auto) 0.02 X10*3/uL (0.00-0.03) 01/09/21 05:53 Absolute Neuts (auto) 3.9 X10*3/uL (2.0-8.3) 01/09/21 05:53 Absolute Nucleated RBC 0.000 X10*3/uL (0.0-0.012) 01/13/21 06:01 Nucleated RBC % (auto) 0.0 /100WBC (0.0-0.2) 01/13/21 06:01 ESR 23 MM/HR (0-20) H 01/11/21 09:36 PT 11.1 SEC (9.9-13.0) 01/08/21 10:25 INR 1.0 (0.9-1.1) 01/08/21 10:25 Sodium 139 mmol/L (135-145) 01/13/21 06:01 Potassium 4.2 mmol/L (3.3-5.1) 01/13/21 06:01 Chloride 106 mmol/L (96-108) 01/13/21 06:01 Carbon Dioxide 27 mmol/L (22-29) 01/13/21 06:01 Anion Gap 10 (12-20) L 01/13/21 06:01 BUN 6 mg/dL (9-16) L 01/13/21 06:01 Creatinine 0.68 mg/dL (0.5-1.4) 01/13/21 06:01 Estim Creat Clear Calc 73.2 01/13/21 06:01 Estimated GFR > 60 01/13/21 06:01 POC Glucose 95 mg/dL (60-115) 01/09/21 11:16 Random Glucose 100 mg/dL (60-115) 01/13/21 06:01 Estimat Average Glucose 94 mg/dL 01/12/21 06:05 Hemoglobin A1c % 4.9 % 01/12/21 06:05 Lactic Acid 1.2 mmol/L (0.5-2.0) 01/08/21 10:24 Calcium 8.6 mg/dL (8.4-10.2) D 01/13/21 06:01 Magnesium 1.9 mg/dL (1.6-2.6) 01/08/21 10:24 Total Bilirubin 0.5 mg/dL (0.0-1.0) 01/08/21 10:24 AST 22 U/L (5-31) 01/08/21 10:24 ALT 12 U/L (0-31) 01/08/21 10:24 Alkaline Phosphatase 93 U/L (39-117) 01/08/21 10:24 C-Reactive Protein 0.95 mg/dL (< or = 0.50) H 01/11/21 09:36 Total Protein 6.5 g/dL (6.5-8.0) 01/08/21 10:24 Albumin 3.9 g/dL (3.5-5.0) 01/08/21 10:24 Urine Color YELLOW 01/09/21 04:30 Urine Appearance CLEAR 01/09/21 04:30 Urine pH 6.0 (5.0-8.0) 01/09/21 04:30 Ur Specific [place] >= 1.030 (1.005-1.025) H 01/09/21 04:30 Urine Protein NEG MG/DL (NEG-TRACE) 01/09/21 04:30 Urine Glucose (UA) NEG MG/DL (NEG) 01/09/21 04:30 Urine Ketones NEG MG/DL (NEG) 01/09/21 04:30 Urine Blood TRACE (NEG) 01/09/21 04:30 Urine Nitrite NEG (NEG) 01/09/21 04:30 Ur Leukocyte Esterase NEG (NEG) 01/09/21 04:30 Urine RBC 1-4 /HPF (0) 01/09/21 04:30 Urine WBC 0-2 /HPF (0-4) 01/09/21 04:30 Ur Squamous Epith Cells 1+ /LPF 01/09/21 04:30 Urine Bacteria NONE /LPF 01/09/21 04:30 Urine Mucus TRACE /LPF 01/09/21 04:30 Vancomycin Trough 14.8 mcg/mL (10.0-20.0) 01/12/21 21:52 Impressions Foot X-Ray 01/08/21 09:27 IMPRESSION: 1. No bony destructive process, periostitis, or gas tracking in soft tissues. 2. No visible fracture or dislocation. No erosive arthropathy. 3. Small posterior and plantar calcaneal spurs. Duplex Scan Lower Extremity Artery 01/08/21 11:07 IMPRESSION: Mild stenoses throughout the course of the left lower extremity, predominantly visualized in the common femoral and proximal profunda arteries. Venous Duplex 01/08/21 11:07 IMPRESSION: No evidence of deep venous thrombosis in the left lower extremity. Foot MRI 01/12/21 13:14 IMPRESSION: 1. Findings consistent with acute osteomyelitis within the 2nd distal phalanx. Adjacent soft tissue fluid collection measuring 0.6 cm, likely representing a small abscess. 2. Edema within the intrinsic musculature of the foot, which can be seen in diabetic patients. Discharge Plan Discharge Patient Disposition: Home Health Service Discharge Diagnosis: osteomyelitis, foot ulcer, peripheral arterial disease Referrals: [facility] [Other] - 1 Week ([facility] WILL DELIVER IV ANTIBIOTICS) [facility] [Outside] - 1 Day (NURSE WILL BE CALLING 01/14/21 IN AM TO SET UP TIME TO START CARE. ) Marisol Mendosa MD [Physician] - 1 Week Alireza Ellis MD [Physician] - 1 Week Toño Valdovinos MD [Primary Care Provider] - 1 Week Discharge Medications: New vancomycin HCl in water 100 mg/mL solution 1 g IV Q12H Qty: 72 RF: 0 hydrocodone-acetaminophen 5-325 mg tablet 1 tab PO Q8H PRN (Reason: severe pain (scale score 7-10)) Qty: 12 RF: 0 Continued atorvastatin 80 mg tablet 1 tab PO DAILY RF: 0 clopidogrel 75 mg tablet 1 tab PO DAILY RF: 0 aspirin [Aspirin Low Dose] 81 mg Tablet,Delayed Release (Dr/Ec) 81 mg PO DAILY RF: 0 carvedilol 3.125 mg tablet 1 tab PO BID RF: 0 dicyclomine 20 mg Tablet 20 mg PO QID PRN (Reason: Abdominal Pain) RF: 0 gabapentin 300 mg capsule 1 cap PO TID Qty: 90 RF: 0 Discharge Orders: Discharge Order (Routine); Ordered 01/14/21 Ordered By: Stephen Kolb Diet: advance to usual diet Activity on Discharge: As tolerated Stand Alone Forms: Patient Portal Discharge page Activity Restrictions/Additional Instructions: Skin glue was used and you may shower as early. Do not lift anything heavier than a gallon of milk for [address] Ellis in follow-up in approximately 2 weeks time. you should already have an appointment if not please call my office at [phone] Please see above for any change in medications - you will need to stay on asprin and plavix If you notice excessive bleeding from the groin please immediately call my off ice or return to the emergency room. Wound care: Alginate in between toes covered by gauze daily. Care Plan Goals: resolution of infection vascular health Health Concerns: osteomyelitis peripheral arterial disease Plan of Treatment: vancomycin via PICC 1gm every 12 hr until 02/19/21 weekly labs beginning 01/18: vancomycin trough, CBCd, BMP, ESR, CRP follow up in 1-2 weeks with Brandie Mendosa (Infectious Disease) and Rhonda (Vascular Surgery) continue aspirin and clopidogrel Assessment: as above Patient Instructions: How to Flush Your PICC (Peripherally Inserted Central Catheter) (DC) Discharge Date/Time: 01/14/21 19:52
[2021-01-14 12:00] VITALS: BP 127/60; PULSE 78; RESP 18; TEMP 36.9; O2SAT 94
[2021-01-14] MEDS: 0.9 % Sodium Chloride Flush 10 ML SYRINGE 5 ML IVFLUSH ×2 (12:53→15:53)
--- NOTE | 2021-01-14 14:29 | HO.VASCPN ---
Subjective Subjective Date of Service: 01/14/21 Patient reports: no new complaints and feels better Interval history: Patient seen and examined. No significant interval issues. She notes that her left leg feels significantly better in general. She notes that the wound appears to be getting better as well. She now presents for follow-up. Physical Exam Vital Signs: Vital Signs: Last Vital Signs Temp 98.4 F 01/14/21 12:00 Pulse 78 01/14/21 12:00 Resp 18 01/14/21 12:00 BP 127/60 01/14/21 12:00 Pulse Ox 94 01/14/21 12:00 Body Mass Index 21.9 Const: General: cooperative, healthy appearing and no acute distress Orientation/consciousness: oriented to person, oriented to place and oriented to time HENMT: Head: Yes normal to inspection Neck: Carotids: no bruits Chest: Chest palpation & inspection: normal inspection of the chest Resp: Effort & Inspection: normal respiratory effort and able to speak in complete sentences Auscultation: clear to auscultation bilaterally Cardio: Rate: regular rate Heart sounds: S1 normal heart sound present and S2 normal heart sound present GI: Inspection: Yes normal to inspection Skin: General skin exam: no rashes or lesions noted Wounds: wounds noted (Wound in 2nd and 3rd web space of left foot which was cleaned) Neuro: General: oriented to person, oriented to place, oriented to time and CN's II-XI intact bilaterally Extrem: General: Yes normal to inspection, Yes full ROM and Yes no clubbing, cyanosis or edema Psych: Appearance: grossly normal and well kempt Speech and movement: Normal speech and movement present Affect: normal affect Progress Note: A&P Assessment and plan (1) PAD (peripheral artery disease): Status: Acute Assessment and Plan: Patient has done extremely well status post endovascular intervention. She will be maintained on aspirin and Plavix. She can follow up with us as an outpatient in approximately 2 weeks time. Continue with local wound care. If there are any questions or concerns please do not hesitate to contact us. Fall Risk Details Current Medications: Current Medications Generic Name Dose Route Start Last Admin Trade Name Freq PRN Reason Stop Dose Admin Acetaminophen 650 mg 01/08/21 14:43 Acetaminophen 325 Mg Tablet PO Q6H PRN Pain, Mild (Pain Scale 1-3) Aspirin 81 mg 01/08/21 14:43 01/14/21 08:47 Aspirin Enteric Coated 81 Mg Tablet.Dr PO 81 mg DAILY JOSE Administration Atorvastatin Calcium 80 mg 01/09/21 09:00 01/14/21 08:47 Atorvastatin Calcium 80 Mg Tablet PO 80 mg DAILY JOSE Administration Carvedilol 3.125 mg 01/08/21 14:43 01/14/21 08:47 Carvedilol 3.125 Mg Tablet PO 3.125 mg BID JOSE Administration Protocol Clopidogrel Bisulfate 75 mg 01/08/21 14:43 01/14/21 08:47 Clopidogrel Bisulfate 75 Mg Tablet PO 75 mg DAILY JOSE Administration Dicyclomine HCl 20 mg 01/08/21 14:46 Dicyclomine Hcl 10 Mg Capsule PO QID PRN Abdominal Pain Docusate Sodium 100 mg 01/08/21 14:43 01/13/21 08:15 Docusate Sodium 100 Mg Capsule PO 100 mg DAILY PRN Administration Constipation Enoxaparin Sodium 40 mg 01/08/21 15:00 01/13/21 15:16 Enoxaparin Sodium 40 Mg/0.4 Ml Syringe SUBCUT 40 mg Q24H JOSE Administration Gabapentin 300 mg 01/08/21 15:00 01/14/21 08:46 Gabapentin 300 Mg Capsule PO 300 mg TID JOSE Administration Vancomycin HCl 1,000 mg/ 270 mls @ 270 mls/hr 01/09/21 23:00 01/14/21 12:45 Sodium Chloride IV Infused Q12H JOSE Infusion Morphine Sulfate 4 mg 01/13/21 16:24 01/14/21 12:49 Morphine Sulfate 4 Mg/Ml Cartridge IVPUSH 4 mg Q4H PRN Administration severe pain Protocol Ondansetron HCl 4 mg 01/08/21 14:43 Ondansetron Hcl 4 Mg/2 Ml Vial IVPUSH Q8H PRN Nausea and Vomiting Pharmacy Consult 1 each 01/08/21 09:27 Consult Rx Perform Med Rec MISCELLANE ONCE PRN Consult order Pharmacy Consult 1 each 01/08/21 14:43 Consult Rx Vancomycin Dosing MISCELLANE DAILY PRN Consult order Sodium Chloride 3 ml 01/08/21 16:00 01/14/21 08:47 0.9 % Sodium Chloride Flush 3 Ml Syringe IVFLUSH 3 ml QSHIFT JOSE Administration Sodium Chloride 5 ml 01/14/21 15:00 0.9 % Sodium Chloride Flush 10 Ml Syringe IVFLUSH TID JOSE Time Spent With Patient Time: Total time spent is greater than 50% in coordination of care (as documented) at patient's floor/unit and/or counseling patient: Time with patient: 15 - 24 minutes Procedures Date of Service Date of Service: 01/14/21 Quality Stroke Does the patient have a stroke diagnosis?: No VTE Prior VTE?: No VTE Risk Level:: Medical - moderate - high VTE Device Contraindication: Treatment Not Indicated VTE Drug Contraindication: N/A - Med Ordered
--- NOTE | 2021-01-14 15:51 | MHC.CM.PN ---
PT DISCHARGING HOME TODAY AFTER 2ND DOSE OF IV ABX W/[facility] & [facility] FOR IV VANCOMYCIN 1GM Q12 X TOTAL OF 6WKS, PT WILL D/C APPROX 8PM AND WILL GO [facility]IA [facility], PT HAS BEEN GIVEN TAXI VOUCHER AND RN GIVEN NUMBER FOR [facility], CM WAS UNABLE TO SCHEDULE AHEAD PER [facility].
== END 2021-01-14 19:52 | disposition home health service (06) | DRG 253 ==
LOC: HO.ED 11:12 → HO.EDOVER 12:07 → HO.S3 13:36
PROVIDERS: Hospitalist; Physician Assistant Medical; Surgery Vascular Surgery; Admitting Provider Internal Medicine; Emergency Provider Internal Medicine; PCP Internal Medicine; Visit Provider Family Medicine
PROC: 047N3Z1 Dilation of Left Popliteal Artery using Drug-Coated Balloon, Percutaneous Approach (ICD-10-PCS; principal; 2021-01-12 07:30)
DX: I70.245 Atherosclerosis of native arteries of left leg with ulceration of other part of foot (principal); L03.116 Cellulitis of left lower limb; M86.9 Osteomyelitis, unspecified; L02.612 Cutaneous abscess of left foot; L97.529 Non-pressure chronic ulcer of other part of left foot with unspecified severity; I25.10 Atherosclerotic heart disease of native coronary artery without angina pectoris; I25.2 Old myocardial infarction; Z86.718 Personal history of other venous thrombosis and embolism; Z88.0 Allergy status to penicillin; Z79.01 Long term (current) use of anticoagulants; Z79.82 Long term (current) use of aspirin; Z79.899 Other long term (current) drug therapy
CPT/HCPCS: 36415; 36573; 37226; 73630; 73720; 76937; 80048; 80053; 80202; 81001; 82565; 82947; 83036; 83605; 83735; 85025; 85027; 85610; 85652; 86140; 87040; 93926; 93971; 96361; 96365; 96375; 99152; 99153; 99285; 99291; A9585; C1725; C1751; C1760; C1769; C1876; C1887; J0696; J1650; J2270; J2405; J3370; Q9967

== ENCOUNTER 2021-01-18 10:43 | Outpatient (REF) | payer MEDICARE, MEDICAID, SELFPAY ==
[2021-01-18 10:47] LABS: MANUAL DIFF FLAG NO
[2021-01-18 10:51] LABS: Basophils Absolute Auto 0.1 X10*3/uL (0.0-0.2); Basophils Percent Auto 0.8 % (0-2); Eosinophils Absolute Auto 0.6 X10*3/uL (0.0-0.4); Eosinophils Percent Auto 6.1 % (0-4); Hematocrit 34.3 % (37-47); Hemoglobin 11.2 g/dl (12.0-16.0); Imm Gran Abs Auto 0.03 X10*3/uL (0.00-0.03); Imm Gran Pct Auto 0.3 % (0.0-0.4); Lymphocytes Absolute Auto 2.1 X10*3/uL (1.2-4.9); Lymphocytes Percent Auto 22.1 % (20-40); Mean Corpuscular HGB Conc 32.7 g/dl (31.0-35.0); Mean Corpuscular Hemoglobin 32.9 pg (27.0-33.0); Mean Corpuscular Volume 100.9 fL (80-98); Monocytes Absolute Auto 0.6 X10*3/uL (0.1-1.2); Monocytes Percent Auto 6.9 % (2-11); Neutrophils Percent Auto 63.8 % (45-73); Platelet Count 490 X10*3/uL (160-400); Red Cell Distribution Width 13.2 % (11.0-16.0); White Blood Count 9.3 X10*3/uL (4.8-10.8)
[2021-01-18 11:27] LABS: Anion Gap 13 (12-20); Blood Urea Nitrogen 5 mg/dL (9-16); C Reactive Protein 6.21 mg/dL (< or = 0.50); Carbon Dioxide 27 mmol/L (22-29); Chloride 106 mmol/L (96-108); Estimated Glomerular Filt Rate > 60; Glucose Random 119 mg/dL (60-115); Potassium 4.2 mmol/L (3.3-5.1); Sodium 142 mmol/L (135-145)
[2021-01-18 11:48] LABS: Vancomycin Trough 11.3 mcg/mL (10.0-20.0)
[2021-01-18 11:57] LABS: Erythrocyte Sedimentation Rate 38 MM/HR (0-20)
== END 2021-01-18 10:44 | disposition home or self-care (01) ==
LOC: HO.HVNA 10:43
PROVIDERS: Visit Provider Internal Medicine
DX: L97.529 Non-pressure chronic ulcer of other part of left foot with unspecified severity (principal); Z79.2 Long term (current) use of antibiotics
CPT/HCPCS: 36415; 80048; 80202; 85025; 85652; 86140

== ENCOUNTER → 2021-01-22 14:19 | Outpatient (BNVA) | payer MEDICARE, MEDICAID, SELFPAY | PROVIDERS: Referring Provider Internal Medicine; Visit Provider Internal Medicine | DX: M86.172 Other acute osteomyelitis, left ankle and foot (principal); M86.9 Osteomyelitis, unspecified; I73.9 Peripheral vascular disease, unspecified; I25.10 Atherosclerotic heart disease of native coronary artery without angina pectoris; Z88.0 Allergy status to penicillin | CPT/HCPCS: 99212 ==

== ENCOUNTER 2021-02-01 12:37 | Outpatient (REF) | payer MEDICARE, MEDICAID, SELFPAY ==
[2021-02-01 12:43] LABS: MANUAL DIFF FLAG NO
[2021-02-01 12:49] LABS: Basophils Absolute Auto 0.1 X10*3/uL (0.0-0.2); Eosinophils Absolute Auto 0.6 X10*3/uL (0.0-0.4); Eosinophils Percent Auto 7.1 % (0-4); Hematocrit 35.9 % (37-47); Hemoglobin 11.4 g/dl (12.0-16.0); Imm Gran Abs Auto 0.03 X10*3/uL (0.00-0.03); Imm Gran Pct Auto 0.3 % (0.0-0.4); Lymphocytes Percent Auto 22.5 % (20-40); Mean Corpuscular HGB Conc 31.8 g/dl (31.0-35.0); Mean Corpuscular Hemoglobin 32.1 pg (27.0-33.0); Mean Corpuscular Volume 101.1 fL (80-98); Mean Platelet Volume 9.1 fL (9.4-12.3); Monocytes Absolute Auto 0.6 X10*3/uL (0.1-1.2); Monocytes Percent Auto 6.3 % (2-11); Neutrophils Absolute Auto 5.6 X10*3/uL (2.0-8.3); Neutrophils Percent Auto 62.8 % (45-73); Platelet Count 361 X10*3/uL (160-400); Red Blood Count 3.55 X10*6/uL (4.20-5.50); Red Cell Distribution Width 13.6 % (11.0-16.0)
[2021-02-01 13:47] LABS: Erythrocyte Sedimentation Rate 6 MM/HR (0-20)
[2021-02-01 14:00] LABS: Vancomycin Trough 11.3 mcg/mL (10.0-20.0)
== END 2021-02-01 12:38 | disposition home or self-care (01) ==
LOC: HO.HVNA 12:37
PROVIDERS: Visit Provider Internal Medicine
DX: L97.522 Non-pressure chronic ulcer of other part of left foot with fat layer exposed (principal); M86.172 Other acute osteomyelitis, left ankle and foot; Z79.2 Long term (current) use of antibiotics
CPT/HCPCS: 36415; 80202; 85025; 85652; 86140

== ENCOUNTER → 2021-02-02 12:42 | Outpatient (BNVA) | payer MEDICARE, MEDICAID, SELFPAY | PROVIDERS: PCP Internal Medicine; Visit Provider Surgery Vascular Surgery | DX: I73.9 Peripheral vascular disease, unspecified (principal) | CPT/HCPCS: 99212 ==

== ENCOUNTER 2021-02-08 11:29 | Outpatient (REF) | payer MEDICARE, MEDICAID, SELFPAY ==
[2021-02-08 11:41] LABS: MANUAL DIFF FLAG NO
[2021-02-08 11:50] LABS: Basophils Absolute Auto 0.1 X10*3/uL (0.0-0.2); Basophils Percent Auto 0.7 % (0-2); Eosinophils Absolute Auto 0.6 X10*3/uL (0.0-0.4); Eosinophils Percent Auto 6.4 % (0-4); Hematocrit 34.2 % (37-47); Hemoglobin 11.1 g/dl (12.0-16.0); Imm Gran Abs Auto 0.03 X10*3/uL (0.00-0.03); Imm Gran Pct Auto 0.4 % (0.0-0.4); Lymphocytes Absolute Auto 2.1 X10*3/uL (1.2-4.9); Lymphocytes Percent Auto 24.9 % (20-40); Mean Corpuscular HGB Conc 32.5 g/dl (31.0-35.0); Mean Corpuscular Hemoglobin 32.9 pg (27.0-33.0); Mean Corpuscular Volume 101.5 fL (80-98); Mean Platelet Volume 9.1 fL (9.4-12.3); Monocytes Absolute Auto 0.6 X10*3/uL (0.1-1.2); Neutrophils Absolute Auto 5.2 X10*3/uL (2.0-8.3); Neutrophils Percent Auto 60.6 % (45-73); Platelet Count 305 X10*3/uL (160-400); Red Blood Count 3.37 X10*6/uL (4.20-5.50); Red Cell Distribution Width 14.2 % (11.0-16.0); White Blood Count 8.6 X10*3/uL (4.8-10.8)
[2021-02-08 12:36] LABS: Erythrocyte Sedimentation Rate 3 MM/HR (0-20)
[2021-02-08 12:45] LABS: Anion Gap 13 (12-20); Blood Urea Nitrogen 7 mg/dL (9-16); C Reactive Protein 0.11 mg/dL (< or = 0.50); Calcium 8.4 mg/dL (8.4-10.2); Carbon Dioxide 23 mmol/L (22-29); Chloride 110 mmol/L (96-108); Estimated Glomerular Filt Rate > 60; Glucose Random 108 mg/dL (60-115); Potassium 4.3 mmol/L (3.3-5.1); Sodium 142 mmol/L (135-145)
[2021-02-08 13:14] LABS: Vancomycin Trough 12.1 mcg/mL (10.0-20.0)
== END 2021-02-08 11:30 | disposition home or self-care (01) ==
LOC: HO.LNP 11:29
PROVIDERS: Visit Provider Internal Medicine
DX: M86.172 Other acute osteomyelitis, left ankle and foot (principal); Z48.812 Encounter for surgical aftercare following surgery on the circulatory system; Z79.2 Long term (current) use of antibiotics
CPT/HCPCS: 80048; 80202; 85025; 85652; 86140; 99212

== ENCOUNTER 2021-02-15 11:11 | Outpatient (REF) | payer MEDICARE, MEDICAID, SELFPAY ==
[2021-02-15 11:13] LABS: MANUAL DIFF FLAG NO
[2021-02-15 11:18] LABS: Basophils Absolute Auto 0.1 X10*3/uL (0.0-0.2); Basophils Percent Auto 0.6 % (0-2); Eosinophils Absolute Auto 0.6 X10*3/uL (0.0-0.4); Eosinophils Percent Auto 5.2 % (0-4); Hematocrit 36.8 % (37-47); Hemoglobin 12.1 g/dl (12.0-16.0); Imm Gran Abs Auto 0.04 X10*3/uL (0.00-0.03); Imm Gran Pct Auto 0.4 % (0.0-0.4); Lymphocytes Absolute Auto 1.6 X10*3/uL (1.2-4.9); Lymphocytes Percent Auto 15.1 % (20-40); Mean Corpuscular HGB Conc 32.9 g/dl (31.0-35.0); Mean Corpuscular Hemoglobin 33.3 pg (27.0-33.0); Mean Corpuscular Volume 101.4 fL (80-98); Mean Platelet Volume 9.2 fL (9.4-12.3); Monocytes Absolute Auto 0.6 X10*3/uL (0.1-1.2); Monocytes Percent Auto 5.4 % (2-11); Neutrophils Percent Auto 73.3 % (45-73); Platelet Count 337 X10*3/uL (160-400); Red Blood Count 3.63 X10*6/uL (4.20-5.50); Red Cell Distribution Width 14.1 % (11.0-16.0); White Blood Count 10.9 X10*3/uL (4.8-10.8)
[2021-02-15 11:57] LABS: Erythrocyte Sedimentation Rate 5 MM/HR (0-20)
[2021-02-15 12:00] LABS: Vancomycin Trough 9.7 mcg/mL (10.0-20.0)
[2021-02-15 12:07] LABS: Anion Gap 12 (12-20); Blood Urea Nitrogen 16 mg/dL (9-16); C Reactive Protein 0.05 mg/dL (< or = 0.50); Calcium 8.5 mg/dL (8.4-10.2); Carbon Dioxide 23 mmol/L (22-29); Chloride 112 mmol/L (96-108); Estimated Glomerular Filt Rate > 60; Glucose Random 91 mg/dL (60-115); Potassium 4.3 mmol/L (3.3-5.1); Sodium 143 mmol/L (135-145)
== END 2021-02-15 11:12 | disposition home or self-care (01) ==
LOC: HO.HVNA 11:11
PROVIDERS: Visit Provider Internal Medicine
DX: M86.172 Other acute osteomyelitis, left ankle and foot (principal); Z79.2 Long term (current) use of antibiotics
CPT/HCPCS: 36415; 80048; 80202; 85025; 85652; 86140

== ENCOUNTER → 2021-02-22 13:35 | Outpatient (BNVA) | payer MEDICARE, MEDICAID, SELFPAY | PROVIDERS: Visit Provider Internal Medicine ==